=== PATIENT | male | born 1965 | race Caucasian/White ===

== ENCOUNTER 2019-02-23 22:04 | Observation (INO) | payer MEDICARE, OTHER ==
--- NOTE | 2019-02-23 22:22 | ERPHSYRPT ---
- History of Present Illness Time Seen by Provider: 02/23/19 22:11 Source: patient Exam Limitations: no limitations Patient Subjective Stated Complaint: pt states he has passed put 2 times today. states it was more sudden that previosly. Triage Nursing Assessment: pt alert and oriented, answers questions approp. pt arrive per ambulance. transfers to stretcher per self. respirations nonlabored with lungs cta. peripheral pulses intact. pupils equal and reacitve. Physician History: Pt states, he was home alone in [place], suddenly passed out without any preceding event or symptoms at 16:30 PM. He woke up, not sure how long was he unconscious, and passed out again around 19 PM. He developed nausea, SOB and left sided chest pain. He took a regular aspirin and called 911, and brought here. Witnessed: unwitnessed Prior Episodes: multiple episodes today Timing/Duration: today Precipitating Factors: none Context: standing Loss of Consciousness: unsure Charcter of event(s): collapsed Allergies/Adverse Reactions: Cephalosporins Allergy (Severe, Verified 11/15/13 16:26) Difficulty Breathing Tetanus Vaccines and Toxoid Allergy (Verified 02/23/19 22:18) Tightness of Throat Home Medications: Atenolol 50 mg [Tenormin 50 mg] 50 mg PO DAILY 11/15/13 [History] Buspirone HCl 5 mg [Buspar 5 mg] 30 mg PO BID 11/15/13 [History] Clonazepam 2 mg PO QID 11/15/13 [History] Desvenlafaxine Succinate [Pristiq ER] 50 mg PO DAILY 11/15/13 [History] Enalapril/Hydrochlorothiazide [Enalapril-Hctz 5-12.5 mg Tab] 1 tab PO BID [History] Ibuprofen 200 mg [Motrin 200 mg] 600 mg PO Q4H PRN PRN 11/15/13 [History] Vilazodone Hydrochloride [Viibryd] 20 mg PO DAILY 11/15/13 [History] Hx Tetanus, Diphtheria Vaccination/Date Given: No Hx Influenza Vaccination/Date Given: No Hx Pneumococcal Vaccination/Date Given: No Immunizations Up to Date: No - Past Medical History Pertinent Past Medical History: Yes Neurological History: No Pertinent History ENT History: No Pertinent History Cardiac History: Hypertension Respiratory History: No Pertinent History Endocrine Medical History: No Pertinent History Musculoskeletal History: Arthritis GI Medical History: GERD, Irritable Bowel History: No Pertinent History Psycho-Social History: Anxiety, Bipolar, Depression Male Reproductive Disorders: No Pertinent History - Past Surgical History Past Surgical History: Yes Neuro Surgical History: No Pertinent History Cardiac: No Pertinent History Respiratory: No Pertinent History Gastrointestinal: Appendectomy Genitourinary: No Pertinent History Musculoskeletal: Orthopedic Surgery Male Surgical History: No Pertinent History Other Surgical History: LEFT FOOT SURGERY IN 03 - Social History Smoking Status: Current every day smoker Exposure to second hand smoke: No Drug Use: none Patient Lives Alone: No - Review of Systems Constitutional: No Symptoms Eyes: No Symptoms Ears, Nose, & Throat: No Symptoms Respiratory: Dyspnea Cardiac: Chest Pain Abdominal/Gastrointestinal: Nausea Neurological: Other (syncope x 2) All Other Systems: Reviewed and Negative Physical Exam - Nursing Vital Signs Nursing Vital Signs: Initial Vital Signs Temperature 98.0 F 02/23/19 22:08 Pulse Rate 77 02/23/19 22:08 Respiratory Rate 18 02/23/19 22:08 Blood Pressure 137/87 02/23/19 22:08 O2 Sat by Pulse Oximetry 99 02/23/19 22:08 Pain Scale Pain Intensity 5 - Sukh Coma Scale Best Eye Response (Sukh): (4) open spontaneously Best Verbal Response ([place]): (5) oriented Best Motor Response (Sukh): (6) obeys commands [place] Total: 15 - Physical Exam General Appearance: no apparent distress Eye Exam: bilateral eye: PERRL, EOMI Ears, Nose, Throat Exam: normal ENT inspection, moist mucous membranes Neck Exam: normal inspection, non-tender, supple, full range of motion, No carotid bruit, No JVD Respiratory: normal breath sounds, lungs clear, airway intact, No chest tenderness Cardiovascular: regular rate/rhythm, normal heart sounds, normal peripheral pulses, No murmur Gastrointestinal: soft, normal bowel sounds, No tenderness Extremity Exam: normal inspection, No calf tenderness, No ghassan's sign Peripheral Pulses: carotid (R): 3+, carotid (L): 3+, femoral (R): 2+, femoral (L ): 2+, dorsalis-pedis (R): 2+, dorsalis-pedis (L): 2+ Mental Status: alert, oriented x 3, cooperative tax lawyer Exam: normal speech Coordination/Gait: normal finger to nose Motor/Sensory: no motor deficit DTR: bicep (R): 2+, bicep (L): 2+, knee (R): 2+, knee (L): 2+, ankle (R): 2+, ankle (L): 2+ Skin Exam: normal color, warm, dry, No rash SpO2 Interpretation: normal SpO2: 99 O2 Delivery: Room Air - Course Nursing assessment & vital signs reviewed: Yes EKG Interpreted by Me: RATE (69/min), Left [place] Deviation, NORMAL INTERVALS, NORMAL QRS, NORMAL ST-T - Radiology Exams Chest X-ray Interpretation: Interpreted by me, Negative - CT Exams Head CT Interpretation: Negative, Tele-radiologist Report Ordered Tests: Active Orders 24 hr Category Date Time Status Camp Nurse STAT Care 02/23/19 22:17 Active EKG-ER Only STAT Care 02/23/19 22:16 Active IV Insertion STAT Care 02/23/19 22:16 Active Oxygen-ED Only Nasal Cannula 2 lpm Care 02/23/19 22:16 Active Pulse Oximetry (ED) STAT Care 02/23/19 22:16 Active CHEST 1 VIEW (PORTABLE) Stat Exams 02/23/19 22:17 Taken HEAD WITHOUT CONTRAST [CT] Stat Exams 02/23/19 22:18 Taken CBC W DIFF Stat Lab 02/23/19 23:09 Completed CK-Creatinine Phosphokinase Stat Lab 02/23/19 23:09 Completed CMP Stat Lab 02/23/19 23:09 Completed D-DIMER QUANTITATION Stat Lab 02/23/19 23:09 Completed MAGNESIUM Stat Lab 02/23/19 23:09 Completed NT PRO BNP Stat Lab 02/23/19 23:09 Completed PROTIME WITH INR Stat Lab 02/23/19 23:09 Completed PTT Stat Lab 02/23/19 23:09 Completed TROPONIN Q3H Lab 02/23/19 23:09 Completed TROPONIN Q3H Lab 02/24/19 01:30 Ordered TROPONIN Q3H Lab 02/24/19 04:30 Ordered TROPONIN Q3H Lab 02/24/19 07:30 Ordered TROPONIN Q3H Lab 02/24/19 10:30 Ordered UA W/RFX UR CULTURE Stat Lab 02/23/19 22:30 Completed Urine Triage Profile Stat Lab 02/23/19 22:30 Completed Medication Summary Discontinued Medications Generic Name Dose Route Start Last Admin Trade Name Sheri PRN Reason Stop Dose Admin Potassium Bicarbonate Confirm 02/24/19 00:54 K-Lyte 25 Meq Administered 02/24/19 00:55 Dose 25 meq .ROUTE .STK-MED ONE Potassium Bicarbonate 25 meq 02/24/19 00:55 02/24/19 00:57 K-Lyte 25 Meq PO 02/24/19 00:56 25 meq STAT ONE Administration Lab/Rad Data: Laboratory Result Diagrams 02/23/19 23:09 02/23/19 23:09 Laboratory Results 02/23/19 02/23/19 02/23/19 Range/Units 23:09 23:09 23:09 WBC (4.0-10.5) K/mm3 RBC (4.1-5.6) M/mm3 Hgb (12.5-18.0) gm/dl Hct (42-50) % MCV (78-100) fl MCH (26-32) pg MCHC (32-36) g/dl RDW (11.5-14.0) % Plt Count (150-450) K/mm3 MPV (6-9.5) fl Gran % (36.0-66.0) % Eos # (Auto) (0-0.5) Absolute Lymphs (auto) (1.0-4.6) Absolute Monos (auto) (0.0-1.3) Lymphocytes % (24.0-44.0) % Monocytes % (0.0-12.0) % Eosinophils % (0.00-5.0) % Basophils % (0.0-0.4) % Absolute Granulocytes (1.4-6.9) Basophils # (0-0.4) PT 12.1 (8.83-12.87) SECONDS INR 1.04 (0.8-3.0) APTT 31.1 (24.1-36.1) SECONDS D-Dimer 293 (215-500) ng/mL Sodium 127 L (137-145) mmol/L Potassium 3.4 L (3.5-5.1) mmol/L Chloride 89 L (98-107) mmol/L Carbon Dioxide 27 (22-30) mmol/L Anion Gap 14.5 (5-15) MEQ/L BUN 15 (9-20) mg/dL Creatinine 0.91 (0.66-1.25) mg/dL Estimated GFR > 60.0 ML/MIN Glucose 91 (74-106) mg/dL Calcium 9.2 (8.4-10.2) mg/dL Magnesium 1.6 (1.6-2.3) mg/dL Total Bilirubin 0.50 (0.2-1.3) mg/dL AST 24 (17-59) U/L ALT 27 (0-50) U/L Alkaline Phosphatase 72 (38-126) U/L Creatine Kinase 98 (55-170) U/L Troponin I < 0.012 (0.000-0.034) ng/mL NT-Pro-B Natriuret Pep 84.2 (0-900) pg/mL Serum Total Protein 6.8 (6.3-8.2) g/dL Albumin 4.1 (3.5-5.0) g/dL Urine Color (YELLOW) Urine Appearance (CLEAR) Urine pH (5-6) Ur Specific [place] (1.005-1.025) Urine Protein (Negative) Urine Ketones (NEGATIVE) Urine Blood (0-5) Lizandro/ul Urine Nitrite (NEGATIVE) Urine Bilirubin (NEGATIVE) Urine Urobilinogen (0-1) mg/dL Ur Leukocyte Esterase (NEGATIVE) Urine WBC (Auto) (0-5) /HPF Urine RBC (Auto) (0-2) /HPF U Epithel Cells (Auto) (FEW) /HPF Urine Bacteria (Auto) (NEGATIVE) /HPF Urine Culture Reflexed (NO) Urine Glucose (NEGATIVE) mg/dL Urine Opiates Level (NEGATIVE) Ur Methadone (NEGATIVE) Urine Barbiturates (NEGATIVE) Ur Phencyclidine (PCP) (NEGATIVE) Urine Amphetamine (NEGATIVE) U Benzodiazepine Level (NEGATIVE) Urine Cocaine (NEGATIVE) Urine Marijuana (THC) (NEGATIVE) 02/23/19 02/23/19 02/23/19 Range/Units 23:09 22:30 22:30 WBC 10.2 (4.0-10.5) K/mm3 RBC 4.27 (4.1-5.6) M/mm3 Hgb 13.5 (12.5-18.0) gm/dl Hct 38.9 L (42-50) % MCV 91.1 (78-100) fl MCH 31.6 (26-32) pg MCHC 34.7 (32-36) g/dl RDW 12.5 (11.5-14.0) % Plt Count 229 (150-450) K/mm3 MPV 8.8 (6-9.5) fl Gran % 65.1 (36.0-66.0) % Eos # (Auto) 0.22 (0-0.5) Absolute Lymphs (auto) 2.37 (1.0-4.6) Absolute Monos (auto) 0.89 (0.0-1.3) Lymphocytes % 23.3 L (24.0-44.0) % Monocytes % 8.8 (0.0-12.0) % Eosinophils % 2.2 (0.00-5.0) % Basophils % 0.6 (0.0-0.4) % Absolute Granulocytes 6.61 (1.4-6.9) Basophils # 0.06 (0-0.4) PT (8.83-12.87) SECONDS INR (0.8-3.0) APTT (24.1-36.1) SECONDS D-Dimer (215-500) ng/mL Sodium (137-145) mmol/L Potassium (3.5-5.1) mmol/L Chloride (98-107) mmol/L Carbon Dioxide (22-30) mmol/L Anion Gap (5-15) MEQ/L BUN (9-20) mg/dL Creatinine (0.66-1.25) mg/dL Estimated GFR ML/MIN Glucose (74-106) mg/dL Calcium (8.4-10.2) mg/dL Magnesium (1.6-2.3) mg/dL Total Bilirubin (0.2-1.3) mg/dL AST (17-59) U/L ALT (0-50) U/L Alkaline Phosphatase (38-126) U/L Creatine Kinase (55-170) U/L Troponin I (0.000-0.034) ng/mL NT-Pro-B Natriuret Pep (0-900) pg/mL Serum Total Protein (6.3-8.2) g/dL Albumin (3.5-5.0) g/dL Urine Color STRAW (YELLOW) Urine Appearance CLEAR (CLEAR) Urine pH 5.0 (5-6) Ur Specific [place] 1.002 (1.005-1.025) Urine Protein NEGATIVE (Negative) Urine Ketones NEGATIVE (NEGATIVE) Urine Blood NEGATIVE (0-5) Liz[place]/ul Urine Nitrite NEGATIVE (NEGATIVE) Urine Bilirubin NEGATIVE (NEGATIVE) Urine Urobilinogen NEGATIVE (0-1) mg/dL Ur Leukocyte Esterase NEGATIVE (NEGATIVE) Urine WBC (Auto) NONE SEEN (0-5) /HPF Urine RBC (Auto) NONE (0-2) /HPF U Epithel Cells (Auto) NONE (FEW) /HPF Urine Bacteria (Auto) NONE SEEN (NEGATIVE) /HPF Urine Culture Reflexed NO (NO) Urine Glucose NEGATIVE (NEGATIVE) mg/dL Urine Opiates Level NEGATIVE (NEGATIVE) Ur Methadone NEGATIVE (NEGATIVE) Urine Barbiturates NEGATIVE (NEGATIVE) Ur Phencyclidine (PCP) NEGATIVE (NEGATIVE) Urine Amphetamine NEGATIVE (NEGATIVE) U Benzodiazepine Level NEGATIVE (NEGATIVE) Urine Cocaine NEGATIVE (NEGATIVE) Urine Marijuana (THC) NEGATIVE (NEGATIVE) - Progress Progress: improved Progress Note: 02/24/19 01:01 Pt has been stable, we reviewed his results, and called Dr Matthews, discussed his current condition, in his case in details, he agreed to admit him for observation, patient was informed and agreed. Discussed with : Byron Will see patient in: hospital (observation) Counseled pt/family regarding: lab results, diagnosis, rad results - Departure Departure Disposition: Observation Clinical Impression: Syncope Qualifiers: Syncope type: unspecified Qualified Code(s): R55 - Syncope and collapse Chest pain Qualifiers: Chest pain type: unspecified Qualified Code(s): R07.9 - Chest pain, unspecified Condition: Stable Critical Care Time: No Referrals: FAM LUI NP [Primary Care Provider] - Instructions: Syncope (Fainting) (DC)
[2019-02-23 22:46] LABS: Appearance CLEAR (CLEAR); Bilirubin NEGATIVE (NEGATIVE); Blood NEGATIVE Ery/ul (0-5); Glucose NEGATIVE (NEGATIVE); Ketones NEGATIVE (NEGATIVE); Leukocyte Esterase NEGATIVE (NEGATIVE); Nitrite NEGATIVE (NEGATIVE); Protein,Urine Dip NEGATIVE (Negative); Specific Gravity 1.002 (1.005-1.025); Urobilinogen NEGATIVE mg/dL (0-1)
[2019-02-23 22:51] LABS: WBC NONE SEEN /HPF (0-5)
[2019-02-23 22:52] LABS: Bacteria NONE SEEN /HPF (NEGATIVE)
[2019-02-23 22:59] LABS: Amphetamine,Urine NEGATIVE (NEGATIVE); Barbiturate,Urine NEGATIVE (NEGATIVE); Benzodiazepine,Urine NEGATIVE (NEGATIVE); Cocaine,Urine NEGATIVE (NEGATIVE); Methadone,Urine NEGATIVE (NEGATIVE); Opiate,Urine NEGATIVE (NEGATIVE); PCP,Urine NEGATIVE (NEGATIVE); THC,Urine NEGATIVE (NEGATIVE)
[2019-02-23 23:12] LABS: BASOPHIL % 0.6 % (0.0-0.4); Basophil (Absolute #) 0.06 (0-0.4); Eosinophil % 2.2 % (0.00-5.0); Eosinophil (Absolute #) 0.22 (0-0.5); Granulocyte Absolute (ANC) 6.61 (1.4-6.9); Granulocytes % 65.1 % (36.0-66.0); Hematocrit 38.9 % (42-50); Hemoglobin 13.5 gm/dl (12.5-18.0); Lymphocyte (Absolute #) 2.37 (1.0-4.6); Lymphocytes % 23.3 % (24.0-44.0); Mean Cell Volume 91.1 fl (78-100); Mean Corpuscular Hemoglobin 31.6 pg (26-32); Mean Corpuscular Hgb Concent. 34.7 g/dl (32-36); Mean Platelet Volume 8.8 fl (6-9.5); Monocyte (Absolute #) 0.89 (0.0-1.3); Monocytes % 8.8 % (0.0-12.0); Platelet Count 229 K/mm3 (150-450); Red Blood Count 4.27 M/mm3 (4.1-5.6); Red Cell Distribution Width 12.5 % (11.5-14.0); White Blood Count 10.2 K/mm3 (4.0-10.5)
[2019-02-23 23:25] LABS: INR 1.04 (0.8-3.0); PROTIME 12.1 SECONDS (8.83-12.87)
[2019-02-23 23:28] LABS: PTT 31.1 SECONDS (24.1-36.1)
[2019-02-23 23:38] LABS: ALBUMIN 4.1 g/dL (3.5-5.0); ALKALINE PHOSPHATASE 72 U/L (38-126); ANION GAP 14.5 MEQ/L (5-15); BLOOD UREA NITROGEN 15 mg/dL (9-20); CHLORIDE 89 mmol/L (98-107); CK-Creatinine Phosphokinase 98 U/L (55-170); Calcium 9.2 mg/dL (8.4-10.2); Carbon Dioxide 27 mmol/L (22-30); Creatinine 1 0.91 mg/dL (0.66-1.25); Glucose 91 mg/dL (74-106); MAGNESIUM 1.6 mg/dL (1.6-2.3); NT PRO BNP 84.2 pg/mL (0-900); Potassium 3.4 mmol/L (3.5-5.1); SGOT/AST 24 U/L (17-59); SGPT/ALT 27 U/L (0-50); SODIUM 127 mmol/L (137-145); Total Protein 6.8 g/dL (6.3-8.2)
[2019-02-24] MEDS ORDERED: POTASSIUM CHLORIDE 20 MEQ POWDER FOR ORAL SOL PO ONE (00:33)
[2019-02-24] MEDS ORDERED: K-LYTE 25 MEQ ONE (00:54)
[2019-02-24] MEDS ORDERED: K-LYTE 25 MEQ PO ONE (00:55)
[2019-02-24] MEDS ORDERED: MAALOX ES 30 ML UNIT DOSE PO PRN (01:03)
[2019-02-24] MEDS ORDERED: TYLENOL 325 MG PO PRN (01:03)
[2019-02-24] MEDS ORDERED: Senokot-S Tablet PO PRN (01:03)
[2019-02-24] MEDS ORDERED: Zofran 4 MG/2 ML VIAL IV PRN (01:03)
[2019-02-24] MEDS ORDERED: MILK OF MAGNESIA 30 ML PO PRN (01:03)
[2019-02-24 01:49] LABS: Risk Ratio 2.9
[2019-02-24] MEDS ORDERED: Sodium Chloride 0.9% W/ 20 mEq KCl/LITER 1,000 ML IV SCH (08:15)
--- NOTE | 2019-02-24 08:21 | PCM.HP ---
History of Present Illness - Chief Complaint Chief Complaint: Syncope History of Present Illness: is a 53 year old male who presented to the ER yesterday after 2 syncopal episodes. He normally sees Dr Carney, has no local physician. He reports he had 2 separate episodes where he felt tingling in his bilateral hands and feet and then passed out, these were apparently unwitnessed so he is uncertain how long he was out either time, the second incident he awoke and developed substernal chest pain, shortness of breath and nausea so came to the ER for evaluation, he denies a history of any cardiac or neurological problems. He denies any drug or alcohol abuse, states he tapered off of klonopin and stopped taking it about 6 weeks ago. - Review of Systems Constitutional: No Fever, No Chills Respiratory: Short Of Breath, No Cough Cardiac: Chest Pain, Syncope Abdominal/Gastrointestinal: No Abdominal Pain, No Nausea, No Vomiting, No Diarrhea Genitourinary Symptoms: No Dysuria Skin: No Rash Neurological: No Dizziness, No Focal Weakness, No Sensory Changes All Other Systems: Reviewed and Negative Medications & Allergies Home Medications: Home Medication List Atenolol 50 mg [Tenormin 50 mg] 100 mg PO DAILY 11/15/13 [History Confirmed 02/24/19] Clonazepam 0.25 mg PO QID PRN 11/15/13 [History Confirmed 02/24/19] Desvenlafaxine Succinate [Pristiq ER] 200 mg PO DAILY 11/15/13 [History Confirmed 02/24/19] Bupropion HCl Xl 150 mg [Wellbutrin XL 150 MG] 450 mg PO QAM 02/24/19 [ History Confirmed 02/24/19] Celecoxib 100 mg [celeBREX 100 MG] 200 mg PO BID 02/24/19 [History Confirmed 02/24/19] Enalapril Maleate 20 mg PO BID 02/24/19 [History Confirmed 02/24/19] Ergocalciferol (Vitamin D2) [Vitamin D2] 50,000 units PO WEEKLY 02/24/19 [ History Confirmed 02/24/19] Gabapentin 300 mg PO TID 02/24/19 [History Confirmed 02/24/19] Hydrochlorothiazide 25 mg [hydroDIURIL 25 MG] 50 mg PO QAM 02/24/19 [ History Confirmed 02/24/19] Hydroxyzine HCl 25 mg [Atarax 25 mg] 25 mg PO BID 02/24/19 [History Confirmed 02/24/19] Minocycline [Minocycline 100MG Cap] 100 mg PO QAM 02/24/19 [History Confirmed 02/24/19] Omeprazole 40 mg PO QAM 02/24/19 [History Confirmed 02/24/19] Simvastatin 10 mg PO QAM 02/24/19 [History Confirmed 02/24/19] Tamsulosin HCl 0.4 mg [Flomax 0.4 MG] 0.4 mg PO DAILY 02/24/19 [History Confirmed 02/24/19] Allergies/Adverse Reactions: Allergies Allergy/AdvReac Type Severity Reaction Status Date / Time Cephalosporins Allergy Severe Difficulty Verified 11/15/13 16:26 Breathing Tetanus Vaccines and Toxoid Allergy Tightness Verified 02/23/19 22:18 of Throat - Past Medical History Past Medical History: Yes Neurological History: No Pertinent History ENT History: No Pertinent History Cardiac History: Hypertension Respiratory History: No Pertinent History Endocrine Medical History: No Pertinent History Musculoskelatal History: Osteoarthritis GI Medical History: GERD, Irritable Bowel History: No Pertinent History Pyscho-Social History: Anxiety, Depression Male Reproductive Disorders: No Pertinent History - Past Surgical History Past Surgical History: Yes Neuro Surgical History: No Pertinent History Cardiac History: No Pertinent History Respiratory Surgery: No Pertinent History GI Surgical History: Appendectomy, Cholecystectomy Genitourinary Surgical Hx: No Pertinent History Musculskeletal Surgical Hx: Orthopedic Surgery Male Surgical History: No Pertinent History Other Surgical History: LEFT FOOT SURGERY IN 03 - Social History Smoking Status: Current every day smoker Exposure to second hand smoke: No Alcohol: None Drug Use: none - Physical Exam Vital Signs: Vital Signs - 24 hr Temp Pulse Resp BP Pulse Ox 02/24/19 07:36 98 02/24/19 07:35 97.7 F 66 14 105/57 97 02/24/19 04:58 98.0 F 68 18 106/68 99 02/24/19 04:00 98.0 F 68 18 106/68 99 02/24/19 01:03 68 18 106/68 99 05/23/19 01:02 99 02/24/19 00:05 64 16 112/70 96 02/23/19 23:05 67 18 110/65 98 02/23/19 22:35 98 02/23/19 22:08 98.0 F 77 18 137/87 99 General Appearance: no apparent distress, alert Neurologic Exam: alert, oriented x 3, cooperative, normal mood/affect, nml cerebellar function, nml station & gait, sensation nml, No motor deficits Eye Exam: PERRL/EOMI, eyes nml inspection Respiratory Exam: normal breath sounds, lungs clear, No respiratory distress Cardiovascular Exam: regular rate/rhythm, normal heart sounds, normal peripheral pulses Gastrointestinal/Abdomen Exam: soft, normal bowel sounds, No tenderness, No mass Extremity Exam: normal inspection, normal range of motion, pelvis stable Skin Exam: normal color, warm, dry, No rash Results - Labs Lab/Micro Results: Lab Results-Last 24 Hours 02/23/19 02/23/19 02/23/19 Range/Units 22:30 22:30 23:09 WBC 10.2 (4.0-10.5) K/mm3 RBC 4.27 (4.1-5.6) M/mm3 Hgb 13.5 (12.5-18.0) gm/dl Hct 38.9 L (42-50) % MCV 91.1 (78-100) fl MCH 31.6 (26-32) pg MCHC 34.7 (32-36) g/dl RDW 12.5 (11.5-14.0) % Plt Count 229 (150-450) K/mm3 MPV 8.8 (6-9.5) fl Gran % 65.1 (36.0-66.0) % Eos # (Auto) 0.22 (0-0.5) Absolute Lymphs (auto) 2.37 (1.0-4.6) Absolute Monos (auto) 0.89 (0.0-1.3) Lymphocytes % 23.3 L (24.0-44.0) % Monocytes % 8.8 (0.0-12.0) % Eosinophils % 2.2 (0.00-5.0) % Basophils % 0.6 (0.0-0.4) % Absolute Granulocytes 6.61 (1.4-6.9) Basophils # 0.06 (0-0.4) PT (8.83-12.87) SECONDS INR (0.8-3.0) APTT (24.1-36.1) SECONDS D-Dimer (215-500) ng/mL Sodium (137-145) mmol/L Potassium (3.5-5.1) mmol/L Chloride (98-107) mmol/L Carbon Dioxide (22-30) mmol/L Anion Gap (5-15) MEQ/L BUN (9-20) mg/dL Creatinine (0.66-1.25) mg/dL Estimated GFR ML/MIN Glucose (74-106) mg/dL Calcium (8.4-10.2) mg/dL Magnesium (1.6-2.3) mg/dL Total Bilirubin (0.2-1.3) mg/dL AST (17-59) U/L ALT (0-50) U/L Alkaline Phosphatase (38-126) U/L Creatine Kinase (55-170) U/L Troponin I (0.000-0.034) ng/mL NT-Pro-B Natriuret Pep (0-900) pg/mL Serum Total Protein (6.3-8.2) g/dL Albumin (3.5-5.0) g/dL Triglycerides (30-150) mg/dL Cholesterol (50-200) mg/dL LDL Cholesterol (30-100) mg/dL HDL Cholesterol (40-60) mg/dL Heart Disease Risk Ratio Urine Color STRAW (YELLOW) Urine Appearance CLEAR (CLEAR) Urine pH 5.0 (5-6) Ur Specific Mittie 1.002 (1.005-1.025) Urine Protein NEGATIVE (Negative) Urine Ketones NEGATIVE (NEGATIVE) Urine Blood NEGATIVE (0-5) Lizandro/ul Urine Nitrite NEGATIVE (NEGATIVE) Urine Bilirubin NEGATIVE (NEGATIVE) Urine Urobilinogen NEGATIVE (0-1) mg/dL Ur Leukocyte Esterase NEGATIVE (NEGATIVE) Urine WBC (Auto) NONE SEEN (0-5) /HPF Urine RBC (Auto) NONE (0-2) /HPF U Epithel Cells (Auto) NONE (FEW) /HPF Urine Bacteria (Auto) NONE SEEN (NEGATIVE) /HPF Urine Culture Reflexed NO (NO) Urine Glucose NEGATIVE (NEGATIVE) mg/dL Urine Opiates Level NEGATIVE (NEGATIVE) Ur Methadone NEGATIVE (NEGATIVE) Urine Barbiturates NEGATIVE (NEGATIVE) Ur Phencyclidine (PCP) NEGATIVE (NEGATIVE) Urine Amphetamine NEGATIVE (NEGATIVE) U Benzodiazepine Level NEGATIVE (NEGATIVE) Urine Cocaine NEGATIVE (NEGATIVE) Urine Marijuana (THC) NEGATIVE (NEGATIVE) 02/23/19 02/23/19 02/23/19 Range/Units 23:09 23:09 23:09 WBC (4.0-10.5) K/mm3 RBC (4.1-5.6) M/mm3 Hgb (12.5-18.0) gm/dl Hct (42-50) % MCV (78-100) fl MCH (26-32) pg MCHC (32-36) g/dl RDW (11.5-14.0) % Plt Count (150-450) K/mm3 MPV (6-9.5) fl Gran % (36.0-66.0) % Eos # (Auto) (0-0.5) Absolute Lymphs (auto) (1.0-4.6) Absolute Monos (auto) (0.0-1.3) Lymphocytes % (24.0-44.0) % Monocytes % (0.0-12.0) % Eosinophils % (0.00-5.0) % Basophils % (0.0-0.4) % Absolute Granulocytes (1.4-6.9) Basophils # (0-0.4) PT 12.1 (8.83-12.87) SECONDS INR 1.04 (0.8-3.0) APTT 31.1 (24.1-36.1) SECONDS D-Dimer 293 (215-500) ng/mL Sodium 127 L (137-145) mmol/L Potassium 3.4 L (3.5-5.1) mmol/L Chloride 89 L (98-107) mmol/L Carbon Dioxide 27 (22-30) mmol/L Anion Gap 14.5 (5-15) MEQ/L BUN 15 (9-20) mg/dL Creatinine 0.91 (0.66-1.25) mg/dL Estimated GFR > 60.0 ML/MIN Glucose 91 (74-106) mg/dL Calcium 9.2 (8.4-10.2) mg/dL Magnesium 1.6 (1.6-2.3) mg/dL Total Bilirubin 0.50 (0.2-1.3) mg/dL AST 24 (17-59) U/L ALT 27 (0-50) U/L Alkaline Phosphatase 72 (38-126) U/L Creatine Kinase 98 (55-170) U/L Troponin I < 0.012 (0.000-0.034) ng/mL NT-Pro-B Natriuret Pep 84.2 (0-900) pg/mL Serum Total Protein 6.8 (6.3-8.2) g/dL Albumin 4.1 (3.5-5.0) g/dL Triglycerides (30-150) mg/dL Cholesterol (50-200) mg/dL LDL Cholesterol (30-100) mg/dL HDL Cholesterol (40-60) mg/dL Heart Disease Risk Ratio Urine Color (YELLOW) Urine Appearance (CLEAR) Urine pH (5-6) Ur Specific Mittie (1.005-1.025) Urine Protein (Negative) Urine Ketones (NEGATIVE) Urine Blood (0-5) Lizandro/ul Urine Nitrite (NEGATIVE) Urine Bilirubin (NEGATIVE) Urine Urobilinogen (0-1) mg/dL Ur Leukocyte Esterase (NEGATIVE) Urine WBC (Auto) (0-5) /HPF Urine RBC (Auto) (0-2) /HPF U Epithel Cells (Auto) (FEW) /HPF Urine Bacteria (Auto) (NEGATIVE) /HPF Urine Culture Reflexed (NO) Urine Glucose (NEGATIVE) mg/dL Urine Opiates Level (NEGATIVE) Ur Methadone (NEGATIVE) Urine Barbiturates (NEGATIVE) Ur Phencyclidine (PCP) (NEGATIVE) Urine Amphetamine (NEGATIVE) U Benzodiazepine Level (NEGATIVE) Urine Cocaine (NEGATIVE) Urine Marijuana (THC) (NEGATIVE) 02/24/19 02/24/19 02/24/19 Range/Units 01:23 01:25 04:36 WBC (4.0-10.5) K/mm3 RBC (4.1-5.6) M/mm3 Hgb (12.5-18.0) gm/dl Hct (42-50) % MCV (78-100) fl MCH (26-32) pg MCHC (32-36) g/dl RDW (11.5-14.0) % Plt Count (150-450) K/mm3 MPV (6-9.5) fl Gran % (36.0-66.0) % Eos # (Auto) (0-0.5) Absolute Lymphs (auto) (1.0-4.6) Absolute Monos (auto) (0.0-1.3) Lymphocytes % (24.0-44.0) % Monocytes % (0.0-12.0) % Eosinophils % (0.00-5.0) % Basophils % (0.0-0.4) % Absolute Granulocytes (1.4-6.9) Basophils # (0-0.4) PT (8.83-12.87) SECONDS INR (0.8-3.0) APTT (24.1-36.1) SECONDS D-Dimer (215-500) ng/mL Sodium (137-145) mmol/L Potassium (3.5-5.1) mmol/L Chloride (98-107) mmol/L Carbon Dioxide (22-30) mmol/L Anion Gap (5-15) MEQ/L BUN (9-20) mg/dL Creatinine (0.66-1.25) mg/dL Estimated GFR ML/MIN Glucose (74-106) mg/dL Calcium (8.4-10.2) mg/dL Magnesium (1.6-2.3) mg/dL Total Bilirubin (0.2-1.3) mg/dL AST (17-59) U/L ALT (0-50) U/L Alkaline Phosphatase (38-126) U/L Creatine Kinase (55-170) U/L Troponin I < 0.012 < 0.012 (0.000-0.034) ng/mL NT-Pro-B Natriuret Pep (0-900) pg/mL Serum Total Protein (6.3-8.2) g/dL Albumin (3.5-5.0) g/dL Triglycerides 110 (30-150) mg/dL Cholesterol 144 (50-200) mg/dL LDL Cholesterol 84 (30-100) mg/dL HDL Cholesterol 50 (40-60) mg/dL Heart Disease Risk Ratio 2.9 Urine Color (YELLOW) Urine Appearance (CLEAR) Urine pH (5-6) Ur Specific Mittie (1.005-1.025) Urine Protein (Negative) Urine Ketones (NEGATIVE) Urine Blood (0-5) Lizandro/ul Urine Nitrite (NEGATIVE) Urine Bilirubin (NEGATIVE) Urine Urobilinogen (0-1) mg/dL Ur Leukocyte Esterase (NEGATIVE) Urine WBC (Auto) (0-5) /HPF Urine RBC (Auto) (0-2) /HPF U Epithel Cells (Auto) (FEW) /HPF Urine Bacteria (Auto) (NEGATIVE) /HPF Urine Culture Reflexed (NO) Urine Glucose (NEGATIVE) mg/dL Urine Opiates Level (NEGATIVE) Ur Methadone (NEGATIVE) Urine Barbiturates (NEGATIVE) Ur Phencyclidine (PCP) (NEGATIVE) Urine Amphetamine (NEGATIVE) U Benzodiazepine Level (NEGATIVE) Urine Cocaine (NEGATIVE) Urine Marijuana (THC) (NEGATIVE) 02/24/19 Range/Units 04:36 WBC (4.0-10.5) K/mm3 RBC (4.1-5.6) M/mm3 Hgb (12.5-18.0) gm/dl Hct (42-50) % MCV (78-100) fl MCH (26-32) pg MCHC (32-36) g/dl RDW (11.5-14.0) % Plt Count (150-450) K/mm3 MPV (6-9.5) fl Gran % (36.0-66.0) % Eos # (Auto) (0-0.5) Absolute Lymphs (auto) (1.0-4.6) Absolute Monos (auto) (0.0-1.3) Lymphocytes % (24.0-44.0) % Monocytes % (0.0-12.0) % Eosinophils % (0.00-5.0) % Basophils % (0.0-0.4) % Absolute Granulocytes (1.4-6.9) Basophils # (0-0.4) PT (8.83-12.87) SECONDS INR (0.8-3.0) APTT (24.1-36.1) SECONDS D-Dimer (215-500) ng/mL Sodium (137-145) mmol/L Potassium 3.3 L (3.5-5.1) mmol/L Chloride (98-107) mmol/L Carbon Dioxide (22-30) mmol/L Anion Gap (5-15) MEQ/L BUN (9-20) mg/dL Creatinine (0.66-1.25) mg/dL Estimated GFR ML/MIN Glucose (74-106) mg/dL Calcium (8.4-10.2) mg/dL Magnesium (1.6-2.3) mg/dL Total Bilirubin (0.2-1.3) mg/dL AST (17-59) U/L ALT (0-50) U/L Alkaline Phosphatase (38-126) U/L Creatine Kinase (55-170) U/L Troponin I (0.000-0.034) ng/mL NT-Pro-B Natriuret Pep (0-900) pg/mL Serum Total Protein (6.3-8.2) g/dL Albumin (3.5-5.0) g/dL Triglycerides (30-150) mg/dL Cholesterol (50-200) mg/dL LDL Cholesterol (30-100) mg/dL HDL Cholesterol (40-60) mg/dL Heart Disease Risk Ratio Urine Color (YELLOW) Urine Appearance (CLEAR) Urine pH (5-6) Ur Specific Mittie (1.005-1.025) Urine Protein (Negative) Urine Ketones (NEGATIVE) Urine Blood (0-5) Lizandro/ul Urine Nitrite (NEGATIVE) Urine Bilirubin (NEGATIVE) Urine Urobilinogen (0-1) mg/dL Ur Leukocyte Esterase (NEGATIVE) Urine WBC (Auto) (0-5) /HPF Urine RBC (Auto) (0-2) /HPF U Epithel Cells (Auto) (FEW) /HPF Urine Bacteria (Auto) (NEGATIVE) /HPF Urine Culture Reflexed (NO) Urine Glucose (NEGATIVE) mg/dL Urine Opiates Level (NEGATIVE) Ur Methadone (NEGATIVE) Urine Barbiturates (NEGATIVE) Ur Phencyclidine (PCP) (NEGATIVE) Urine Amphetamine (NEGATIVE) U Benzodiazepine Level (NEGATIVE) Urine Cocaine (NEGATIVE) Urine Marijuana (THC) (NEGATIVE) - Radiology Impressions Radiology Exams & Impressions: Radiology Procedures Category Date Time Status CHEST 1 VIEW (PORTABLE) Stat Exams 02/23/19 22:17 Taken ECHO W/2D AND DOPPLER [US] Routine Exams 02/24/19 Ordered HEAD WITHOUT CONTRAST [CT] Stat Exams 02/23/19 22:18 Taken - Other Procedures and Tests Respiratory Therapy 02/25/19 05:00 EKG ROUTINE 02/26/19 05:00 EKG ROUTINE 02/27/19 05:00 EKG ROUTINE Assessment/Plan (1) Syncope Current Visit: Yes Status: Acute Qualifiers: Syncope type: unspecified Qualified Code(s): R55 - Syncope and collapse Assessment & Plan: ekg reviewed, shows pvc and possible left anterior fascicular block, no current of injury. troponin has been negative thus far. will obtain eeg today to r/o seizure but mostly concerning for cardiac etiology in the context of chest pain , dyspnea and nausea that followed the incident. will get echo and cardiology consult today. Code(s): R55 - SYNCOPE AND COLLAPSE (2) Chest pain Current Visit: Yes Status: Acute Qualifiers: Chest pain type: unspecified Qualified Code(s): R07.9 - Chest pain, unspecified Code(s): R07.9 - CHEST PAIN, UNSPECIFIED (3) Hyponatremia Current Visit: Yes Status: Acute Assessment & Plan: will stop hctz and hydrate with NS+K, pt states he has had issues with low sodium and potassium in the past but it was a long time ago. check FeNa and TSH Code(s): E87.1 - HYPO-OSMOLALITY AND HYPONATREMIA (4) Hypokalemia Current Visit: Yes Status: Acute Code(s): E87.6 - HYPOKALEMIA
[2019-02-24] MEDS ORDERED: Nitrostat 0.4 MG Tablet SL PRN (08:32)
--- NOTE | 2019-02-24 08:51 | XRAY ---
Indication: Chest pain. Syncope. Comparison: November 15, 2013. Portable chest demonstrates normal heart and lungs again with incidental calcified granulomas. Bony thorax intact with mild degenerative changes. Impression: Nonacute chest with chronic features.
--- NOTE | 2019-02-24 08:51 | XRAY ---
Indication: Syncope. No known injury. Multiple contiguous axial images obtained through the head without contrast. Comparison: None Age-appropriate global atrophy. No acute intracranial hemorrhage, abnormal extra-axial fluid collection, or mass effect. Fourth ventricle is midline without hydrocephalus. Cristobal-white matter differentiation preserved. Bony calvarium intact. Visualized paranasal sinuses and mastoid air cells are clear. Impression: Negative CT head without contrast exam. Comment: Preliminary interpretation was made by [facility]. No critical discrepancy. CT DI 67.22
[2019-02-24] MEDS ORDERED: MEDICATION INTERVENTION PO SCH (09:15)
[2019-02-24] MEDS ORDERED: TENORMIN 50 MG PO SCH (10:00)
[2019-02-24] MEDS ORDERED: ATARAX 25 MG PO SCH (10:00)
[2019-02-24] MEDS ORDERED: Vasotec 10 MG PO SCH (10:00)
[2019-02-24] MEDS ORDERED: Flomax 0.4 MG PO SCH (10:00)
[2019-02-24] MEDS ORDERED: Wellbutrin XL 150 MG PO SCH (10:00)
[2019-02-24] MEDS ORDERED: MINOCYCLINE 100 MG PO SCH (10:00)
[2019-02-24] MEDS ORDERED: ENALAPRIL MALEATE 20 MG PO SCH (10:00)
[2019-02-24] MEDS ORDERED: NON-FORMULARY ITEM (Omeprazole [Omeprazole] 40 MG) PO SCH (10:00)
[2019-02-24] MEDS ORDERED: Protonix 40MG Tablet PO SCH (10:00)
[2019-02-24] MEDS ORDERED: PRISTIQ ER PO SCH (10:00)
[2019-02-24] MEDS ORDERED: Ecotrin 325 MG PO SCH (10:00)
[2019-02-24] MEDS ORDERED: Zocor 10MG PO SCH (10:00)
[2019-02-24] MEDS: NEURONTIN 300 MG PO SCH ×2 (10:38→14:52)
[2019-02-24 12:35] VITALS: O2SAT 99
[2019-02-24 19:10] LABS: ANION GAP 11.4 MEQ/L (5-15); Potassium 4.3 mmol/L (3.5-5.1)
[2019-02-24 20:03] VITALS: BP 101/72; PULSE 82
--- NOTE | 2019-02-25 09:13 | CONS ---
CONSULT DATE: 02/24/2019 BRIEF HISTORY: This is a 53 year-old male who was seen because of history of syncope, this occurred twice. The first one occurred while he was in [facility] and was standing and apparently fainted. There was no serious injury sustained. This occurred two hours prior to admission while he was at home and was just relaxing but felt suddenly lightheaded and just tingling all over and he was trying to get to his chair but apparently passed out. Again, there was no injury sustained. He stated that this lasted for about a minute and when he regained consciousness he was cognizant of his environment. There was no bladder or bowel incontinence. There were no other witnesses around. The patient has never had any cardiac-related issues in the past specifically no history of myocardial infarction or heart failure. He states that during the past episode he did feel some funny sensation and then later passed out. On his initial evaluation he was noted to be hyponatremic and also had low potassium. He is on diuretics. CARDIAC RISK FACTORS: Negative for diabetes. Positive for hypertension. He smokes about a pack of cigarettes. He has a history or hyperlipidemia. FAMILY HISTORY: Negative for premature coronary artery disease. REVIEW OF SYSTEMS: PUNCH MACHINE HAND: There is no history of stroke or seizures. No chronic headache. He had a head injury at age 7. RESPIRATORY: No chronic cough. No hemoptysis. GI: Denies any nausea. No vomiting. No diarrhea or constipation. He has history of bleeding peptic ulcer in the past. He had colonoscopy which showed some polyp disorder. : Negative for dysuria or hematuria. No flank pains. PERIPHERAL VASCULAR: No history of deep venous thrombosis or claudication. He has a history of varicose veins. MUSCULOSKELETAL: He has some degenerative joint disorder involving the knees and left hip. SKIN: There are no active dermatological problems. HEMATOLOGY: No history of blood dyscrasia or transfusion. ENDOCRINE: No history of thyroid disorder. PSYCHIATRIC: He has history of anxiety and depression. CURRENT MEDICATIONS: Enalapril, gabapentin, Atarax, Protonix, Simvastatin, Flomax, Atenolol, Celebrex, clonazepam, Pristiq, omeprazole and recently Wellbutrin. PAST SURGICAL HISTORY: Appendectomy. Adhesiolysis. Foot surgery. Tonsillectomy. SOCIAL HISTORY: He lives by himself. He is currently on Disability. He used to farm. He has no significant alcohol intake. PHYSICAL EXAMINATION: Blood pressure 106/68, heart rate 68, respirations about 18. GENERAL: The patient is a middle aged male who is alert, oriented, mildly obese who is not in any form of distress. HEENT: Unremarkable. NECK: No significant JVD. No carotid bruit. CHEST: The breath sounds are clear. CARDIAC: Heart tones are normal. The rhythm is regular. ABDOMEN: Soft with normal bowel sounds. No bruits. EXTREMITIES: No significant edema. Good distal pulses. LAB DATA AND DIAGNOSTIC TESTS: The EKG done on 02/24/2019 showed sinus rhythm with poor R-wave progression with isolated PVC's. Laboratory data: TSH 1.7. Troponin I is normal. Cholesterol 144 with LDL of 84. International normalized ratio 1.0. Hemoglobin 13.5, PLT 229,000. Urine drug screen is negative. Serum sodium 127, potassium 3.4. Glomerular filtration rate is normal. ASSESSMENT AND PLAN: 1) Syncope possible etiologies include cardiac arrhythmia particularly bradycardia, possible neurocardiogenic syncope, orthostatic hypotension and also electrolyte imbalance. I suggest repeating electrolytes to make sure that the hyponatremia and hypokalemia has been corrected, this also increases his risk for cardiac arrhythmia. 2) Multiple cardiac risk factors currently asymptomatic. Will likely do coronary calcium score for screening and eventually maybe even a stress test. 3) Hypertension. Will get orthostatic blood pressure and perhaps the HENRY inhibitor needs to be adjusted as his blood pressure is in the low normal. 4) Hyperlipidemia. 5) History of anxiety and depression. I will follow up with you.
--- NOTE | 2019-02-25 09:23 | ECHO ---
Transthoracic echocardiographic examination and color Doppler was done on 02/24/2019. INDICATION: Syncope. IMPRESSION: 1) NO REGIONAL WALL MOTION ABNORMALITY. ESTIMATED GLOBAL LEFT VENTRICULAR EJECTION FRACTION BETWEEN 50 AND 60%. 2) LEFT ATRIAL ENLARGEMENT. The left ventricle is visualized and demonstrated adequate motion of all the segments. Estimated global left ventricular ejection fraction between 50 and 60%. The left ventricular thickness is normal. The mitral valve is seen and this opens adequately. There is no significant mitral regurgitation. Left atrium is mildly enlarged. Tissue Doppler study of the lateral mitral annulus is within normal. The aortic valve opens adequately. There is no significant gradient across the left ventricular outflow tract. The right side chambers are normal with normal right ventricular contractility.
== END 2019-02-24 21:38 | disposition home or self-care (01) ==
LOC: ED 22:04 → MED SURG 02-24 01:28
PROVIDERS: ADMIT Family Medicine; ATTEND Family Medicine
DX: R55 Syncope and collapse (principal); I10 Essential (primary) hypertension; E78.5 Hyperlipidemia, unspecified; R07.9 Chest pain, unspecified; E87.1 Hypo-osmolality and hyponatremia; E87.6 Hypokalemia; F17.200 Nicotine dependence, unspecified, uncomplicated
CPT/HCPCS: 36415; 70450; 71045; 80051; 80053; 80061; 80307; 81001; 82550; 82570; 83721; 83735; 83880; 83935; 84132; 84300; 84443; 84484; 85025; 85379; 85610; 85730; 93005; 93041; 93225; 93268; 93306; 94760; 95812; 99285; G0378; A9270-GY

== ENCOUNTER 2019-07-04 00:46 | Emergency (ER) | payer MEDICARE ==
[2019-07-04 00:53] VITALS: BP 151/98; PULSE 77; O2SAT 98
--- NOTE | 2019-07-04 00:54 | ERPHSYRPT ---
- History of Present Illness Time Seen by Provider: 07/04/19 00:54 Source: patient, family Exam Limitations: no limitations Physician History: 54 y/o white male presents for postop wound check of a left wrist carpal tunnel release surgery performed 2 days ago. pt has club feet and lost his balance twice today. each time he fell onto outstretched bilat hands. he wants wound evaluated because he thinks suture may have pulled through. Timing/Duration: today Modifying Factors: Improves With: nothing Associated Symptoms: denies symptoms Allergies/Adverse Reactions: Cephalosporins Allergy (Severe, Verified 11/15/13 16:26) Difficulty Breathing Tetanus Vaccines and Toxoid Allergy (Verified 02/23/19 22:18) Tightness of Throat Home Medications: Atenolol 50 mg [Tenormin 50 mg] 100 mg PO DAILY 11/15/13 [History] Desvenlafaxine Succinate [Pristiq] 200 mg PO DAILY 11/15/13 [History] Bupropion HCl Xl 150 mg [Wellbutrin XL 150 MG] 450 mg PO QAM 02/24/19 [ History] Celecoxib 100 mg [celeBREX 100 MG] 200 mg PO BID 02/24/19 [History] Enalapril Maleate 20 mg PO BID 02/24/19 [History] Ergocalciferol (Vitamin D2) [Vitamin D2] 50,000 units PO WEEKLY 02/24/19 [ History] Gabapentin 300 mg PO TID 02/24/19 [History] Hydroxyzine HCl 25 mg [Atarax 25 mg] 25 mg PO BID 02/24/19 [History] Minocycline [Minocycline 100MG Cap] 100 mg PO QAM 02/24/19 [History] Omeprazole 40 mg PO QAM 02/24/19 [History] Simvastatin 10 mg PO QAM 02/24/19 [History] Tamsulosin HCl 0.4 mg [Flomax 0.4 MG] 0.4 mg PO DAILY 02/24/19 [History] Hx Tetanus, Diphtheria Vaccination/Date Given: No Hx Influenza Vaccination/Date Given: No Hx Pneumococcal Vaccination/Date Given: No - Review of Systems Constitutional: No Symptoms Eyes: No Symptoms Ears, Nose, & Throat: No Symptoms Respiratory: No Symptoms Cardiac: No Symptoms Abdominal/Gastrointestinal: No Symptoms Genitourinary Symptoms: No Symptoms Musculoskeletal: No Symptoms Skin: Other (post left carpal tunnel release surgery) Neurological: No Symptoms Psychological: No Symptoms Endocrine: No Symptoms Hematologic/Lymphatic: No Symptoms Immunological/Allergic: No Symptoms All Other Systems: Reviewed and Negative - Past Medical History Pertinent Past Medical History: Yes Neurological History: No Pertinent History ENT History: No Pertinent History Cardiac History: Hypertension Respiratory History: No Pertinent History Endocrine Medical History: No Pertinent History Musculoskeletal History: Osteoarthritis GI Medical History: GERD, Irritable Bowel History: No Pertinent History Psycho-Social History: Anxiety, Depression Male Reproductive Disorders: No Pertinent History - Past Surgical History Past Surgical History: Yes Neuro Surgical History: No Pertinent History Cardiac: No Pertinent History Respiratory: No Pertinent History Gastrointestinal: Appendectomy, Cholecystectomy Genitourinary: No Pertinent History Musculoskeletal: Orthopedic Surgery Male Surgical History: No Pertinent History Other Surgical History: LEFT FOOT SURGERY IN 03 - Social History Smoking Status: Current every day smoker Exposure to second hand smoke: No Drug Use: none Patient Lives Alone: No - Nursing Vital Signs Nursing Vital Signs: Initial Vital Signs Temperature 97.8 F 07/04/19 00:46 Pulse Rate 77 07/04/19 00:46 Respiratory Rate 18 07/04/19 00:46 Blood Pressure 151/98 07/04/19 00:46 O2 Sat by Pulse Oximetry 98 07/04/19 00:46 Pain Scale Pain Intensity 5 - Physical Exam General Appearance: no apparent distress, alert, anxiety Eye Exam: PERRL/EOMI, eyes nml inspection Ears, Nose, Throat Exam: normal ENT inspection, moist mucous membranes Neck Exam: normal inspection, non-tender, supple, full range of motion Respiratory Exam: No chest tenderness Gastrointestinal/Abdomen Exam: No tenderness Rectal Exam: not done Back Exam: normal inspection, normal range of motion, No CVA tenderness, No vertebral tenderness Extremity Exam: normal range of motion Neurologic Exam: alert, oriented x 3, cooperative, 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 ) Lymphatic Exam: No adenopathy SpO2 Interpretation: normal SpO2: 98 O2 Delivery: Room Air - Course Nursing assessment & vital signs reviewed: Yes - Progress Progress: unchanged Progress Note: 07/04/19 01:02 nurses cleaned site, placed a thin layer of antibiotic ointment and placed a new dressing. Counseled pt/family regarding: diagnosis, need for follow-up - Departure Departure Disposition: Home Clinical Impression: Encounter for postoperative wound check Condition: Stable Critical Care Time: No Referrals: FAM LUI NP [Primary Care Provider] - Additional Instructions: keep bandage in place and follow your wound care/dressing instructions. call your surgeon today to obtain further instructions.
[2019-07-04] MEDS ORDERED: BACIGUENT PACKET ONE (01:00)
== END 2019-07-04 01:26 | disposition home or self-care (01) ==
LOC: ED 00:46
DX: Z48.01 Encounter for change or removal of surgical wound dressing (principal)
CPT/HCPCS: 99283; A9270-GY

== ENCOUNTER 2019-09-23 18:43 | Emergency (ER) | payer MEDICARE ==
[2019-09-23] MEDS ORDERED: Adacel Vial IM ONE ×2 (19:05→19:14)
[2019-09-23] MEDS ORDERED: BENADRYL 50 MG/ML IV ONE (19:05)
--- NOTE | 2019-09-23 19:09 | ERPHSYRPT ---
- History of Present Illness Time Seen by Provider: 09/23/19 18:55 Source: patient Exam Limitations: no limitations Patient Subjective Stated Complaint: pt reports he was working out in his yard when he became entangled in a piece of wire causing his left croc shoe to come off, pt states that he then stepped on a piece of metal post sticking up from the ground. pt reports allergy to all products containing tetanus. pt denies any other injury. Triage Nursing Assessment: pt is aox3, pupils perrl, afebrile, resps easy and non labored, radial pulses strong and equal, cap refill < 3 seconds, pt skin pink warm dry. laceration noted to the bottom of the left foot measuring approx 6 cm in length, wound is well approximated, minimal serous drainage noted at this time. Physician History: Patient cut the sole of his left foot on a metal wire post out in a field that has cows and horses pass by it. He states he had a localized reaction to a tetanus booster given to him 20 years ago and was told not to get it in the future. Timing/Duration: today, hour(s) (1) Quality: painful Severity: mild Location: feet (left foot only) Possible Causes: other (cut on metal wire) Modifying Factors: Worsens With: other (with ambulation) Associated Symptoms: denies symptoms, No blisters, No change in skin texture, No difficulty breathing, No edema, No fever, No flushing, No headache, No hives , No jaundice, No malaise, No nasal congestion, No numbness, No pallor, No paresthesia, No petechiae, No rash, No sore throat, No swelling/mass/lumps, No tingling Allergies/Adverse Reactions: Cephalosporins Allergy (Severe, Verified 09/23/19 18:56) Difficulty Breathing Tetanus Vaccines and Toxoid Allergy (Verified 09/23/19 18:56) Tightness of Throat Home Medications: Atenolol 50 mg [Tenormin 50 mg] 100 mg PO DAILY 11/15/13 [History] Desvenlafaxine Succinate [Pristiq] 200 mg PO DAILY 11/15/13 [History] Bupropion HCl Xl 150 mg [Wellbutrin XL 150 MG] 450 mg PO QA 02/24/19 [ History] Celecoxib 100 mg [celeBREX 100 MG] 200 mg PO BID 02/24/19 [History] Enalapril Maleate 20 mg PO BID 02/24/19 [History] Ergocalciferol (Vitamin D2) [Vitamin D2] 50,000 units PO WEEKLY 02/24/19 [ History] Gabapentin 300 mg PO TID 02/24/19 [History] Hydroxyzine HCl 25 mg [Atarax 25 mg] 25 mg PO BID 02/24/19 [History] Minocycline [Minocycline 100MG Cap] 100 mg PO QAM 02/24/19 [History] Omeprazole 40 mg PO QAM 02/24/19 [History] Simvastatin 10 mg PO QAM 02/24/19 [History] Tamsulosin HCl 0.4 mg [Flomax 0.4 MG] 0.4 mg PO DAILY 02/24/19 [History] Clindamycin HCl 300 mg PO TID 07/04/19 [History] Hx Tetanus, Diphtheria Vaccination/Date Given: No (allergy) Hx Influenza Vaccination/Date Given: Yes Hx Pneumococcal Vaccination/Date Given: Yes Immunizations Up to Date: Yes - Review of Systems Constitutional: No Fever, No Chills, No Fatigue Eyes: No Eye Pain, No Vision Changes Ears, Nose, & Throat: No Nose Pain, No Epistaxis, No Mouth Swelling, No Throat Pain, No Painful Swallowing Respiratory: No Cough, No Dyspnea Cardiac: No Chest Pain, No Edema, No Syncope Abdominal/Gastrointestinal: No Abdominal Pain, No Nausea, No Vomiting, No Diarrhea Genitourinary Symptoms: No Flank Pain Musculoskeletal: No Back Pain, No Neck Pain, No Fall Skin: No Rash Neurological: No Dizziness, No Focal Weakness, No Headache, No Parasthesia, No Sensory Changes Psychological: No Emotional Lability Endocrine: No Polydipsia, No Excessive Sweating Hematologic/Lymphatic: No Easy Bleeding, No Easy Bruising All Other Systems: Reviewed and Negative - Past Medical History Pertinent Past Medical History: Yes Neurological History: No Pertinent History ENT History: No Pertinent History Cardiac History: Hypertension Respiratory History: No Pertinent History Endocrine Medical History: No Pertinent History Musculoskeletal History: Osteoarthritis GI Medical History: GERD, Irritable Bowel History: No Pertinent History Psycho-Social History: Anxiety, Depression Male Reproductive Disorders: No Pertinent History - Past Surgical History Past Surgical History: Yes Neuro Surgical History: No Pertinent History Cardiac: No Pertinent History Respiratory: No Pertinent History Gastrointestinal: Appendectomy, Cholecystectomy Genitourinary: No Pertinent History Musculoskeletal: Orthopedic Surgery Male Surgical History: No Pertinent History Other Surgical History: LEFT FOOT SURGERY IN 03 - Social History Smoking Status: Current every day smoker How long have you smoked: 20 yrs Exposure to second hand smoke: No Drug Use: none Patient Lives Alone: No - Nursing Vital Signs Nursing Vital Signs: Initial Vital Signs Temperature 98 F 09/23/19 18:44 Pulse Rate 71 09/23/19 18:44 Respiratory Rate 18 09/23/19 18:44 Blood Pressure 143/100 09/23/19 18:44 O2 Sat by Pulse Oximetry 100 09/23/19 18:44 Pain Scale Pain Intensity 2 - Physical Exam General Appearance: no apparent distress, alert Eye Exam: PERRL/EOMI, eyes nml inspection Ears, Nose, Throat Exam: normal ENT inspection, pharynx normal, moist mucous membranes Neck Exam: normal inspection, non-tender, supple, full range of motion Respiratory Exam: normal breath sounds, lungs clear, No respiratory distress Cardiovascular Exam: regular rate/rhythm, normal heart sounds, normal peripheral pulses, capillary refill <2 sec Gastrointestinal/Abdomen Exam: soft, normal bowel sounds, No tenderness, No distention Back Exam: normal inspection, normal range of motion, No CVA tenderness, No vertebral tenderness Extremity Exam: normal inspection, normal range of motion Neurologic Exam: alert, oriented x 3, cooperative, 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, normal mood/affect, nml cerebellar function, sensation nml, No motor deficits Skin Exam: normal color, warm, dry, laceration (sole of left foot, superficial and jagged in certain areas in midfoot going diagonally 7 cm the top layer of skin, no dermal involvment) SpO2 Interpretation: normal SpO2: 100 O2 Delivery: Room Air Procedures - Laceration/Wound Repair Left Foot Wound Length (cm): 7 (cm) Wound's Depth, Shape: superficial, linear Wound Explored: clean Irrigated: Yes Hibiclens Prep: Yes Volume Anesthetic (ccs): 0 Wound Debrided: none Wound Repaired With: Dermabond Layer Closure?: No Sterile Dressing Applied?: Yes Ordered Tests: Active Orders 24 hr Category Date Time Status Crutches STAT Care 12/20/19 19:56 Active IV Insertion STAT Care 09/23/19 19:05 Active Medication Summary Discontinued Medications Generic Name Dose Route Start Last Admin Trade Name Sheri PRN Reason Stop Dose Admin Diphenhydramine HCl 25 mg 09/23/19 19:05 09/23/19 19:25 Benadryl 50 Mg/Ml IV 09/23/19 19:06 25 mg STAT ONE Administration Diphenhydramine HCl Confirm 09/23/19 19:14 Benadryl 50 Mg/Ml Administered 09/23/19 19:15 Dose 50 mg .ROUTE .STK-MED ONE Diphtheria/Tetanus/Acell Pertussis 0.5 ml 09/23/19 19:05 09/23/19 19:20 Adacel Vial IM 09/23/19 19:06 0.5 ml .ONCE ONE Administration Diphtheria/Tetanus/Acell Pertussis Confirm 09/23/19 19:14 Adacel Vial Administered 09/23/19 19:15 Dose 0.5 ml IM .STK-MED ONE - Progress Progress: improved Progress Note: 09/23/19 19:10 Patient did not have any airway compromise, tongue swelling, wheezing, hives, skin rash or blood pressure dropping or admission to the hospital when he received his last tetanus booster twenty years ago. He had localized swelling in the hip where he had the injection. 09/23/19 19:44 Patient having no response to the Tdap given with no wheeze, no respiratory distress, no erythema, no hives no skin rashes. 09/23/19 20:34 Patient did not have any airway, circulatory, or integument findings that are consistent with any type of allergic response after getting his tetanus booster. Counseled pt/family regarding: diagnosis, need for follow-up - Departure Departure Disposition: Home Clinical Impression: Laceration of left foot excluding toes Qualifiers: Encounter type: initial encounter Qualified Code(s): S91.312A - Laceration without foreign body, left foot, initial encounter Hypertension Qualifiers: Hypertension type: essential hypertension Qualified Code(s): I10 - Essential ( primary) hypertension Condition: Good Critical Care Time: No Referrals: FAM LUI NP [Primary Care Provider] - Follow Up with PCP/3 days Instructions: Laceration Repair With Glue (DC), Tdap Vaccine, Epinephrine Autoinjectors Additional Instructions: Use the crutches to take weightbearing off your left foot for the next 5-7 days. Do not soak your left foot in water but you may bathe with shower slippers. Use the epinephrine pen as needed per instructions for severe allergic reaction. It does not appear to have any immediate hypersensitivity to tetanus at this time. Return immediately back to the emergency department if you have any difficulty breathing, new rashes, knee swelling sensation in her mouth or tongue, any wheezing, any dizziness or feeling faint sensation or any other concerning signs or symptoms that were not present at the base of her third visit for immediate reevaluation in the emergency department. Prescriptions: EPINEPHrine [Epipen 0.3 MG] 0.3 mg IM DAILY PRN PRN #1 pack PRN Reason: Allergies
[2019-09-23] MEDS ORDERED: BENADRYL 50 MG/ML ONE (19:14)
[2019-09-23 20:14] VITALS: BP 125/77; PULSE 68
[2019-09-23 20:39] VITALS: O2SAT 100
== END 2019-09-23 20:52 | disposition home or self-care (01) ==
LOC: ED 18:43
DX: S91.312A Laceration without foreign body, left foot, initial encounter (principal); I10 Essential (primary) hypertension; W26.8XXA Contact with other sharp object(s), not elsewhere classified, initial encounter
CPT/HCPCS: 12001; 36000; 90471; 90715; 96374; 99284; J1200

== ENCOUNTER 2020-03-19 22:45 | Emergency (ER) | payer MEDICARE ==
--- NOTE | 2020-03-19 23:00 | ERPHSYRPT ---
- History of Present Illness Time Seen by Provider: 03/19/20 22:55 Source: patient Exam Limitations: no limitations Physician History: A 55-year-old male who was put on doxycycline by his primary care physician for skin infection and today was baling hay and suffered severe rivero from the sun on his forearms and particularly his hands. Timing/Duration: today Quality: burning Severity: moderate Location: hands Possible Causes: medications Allergies/Adverse Reactions: Cephalosporins Allergy (Severe, Verified 09/23/19 18:56) Difficulty Breathing Tetanus Vaccines and Toxoid Allergy (Verified 09/23/19 18:56) Tightness of Throat Home Medications: Atenolol 50 mg [Tenormin 50 mg] 100 mg PO DAILY 11/15/13 [History] Desvenlafaxine Succinate [Pristiq] 200 mg PO DAILY 11/15/13 [History] Bupropion HCl Xl 150 mg [Wellbutrin XL 150 MG] 450 mg PO QAM 02/24/19 [ History] Celecoxib 100 mg [celeBREX 100 MG] 200 mg PO BID 02/24/19 [History] Enalapril Maleate 20 mg PO BID 02/24/19 [History] Ergocalciferol (Vitamin D2) [Vitamin D2] 50,000 units PO WEEKLY 02/24/19 [ History] Gabapentin 300 mg PO TID 02/24/19 [History] Hydroxyzine HCl 25 mg [Atarax 25 mg] 25 mg PO BID 02/24/19 [History] Minocycline [Minocycline 100MG Cap] 100 mg PO QAM 02/24/19 [History] Omeprazole 40 mg PO QAM 02/24/19 [History] Simvastatin 10 mg PO QAM 02/24/19 [History] Tamsulosin HCl 0.4 mg [Flomax 0.4 MG] 0.4 mg PO DAILY 02/24/19 [History] Clindamycin HCl 300 mg PO TID 07/04/19 [History] Hx Tetanus, Diphtheria Vaccination/Date Given: No (allergy) Hx Influenza Vaccination/Date Given: Yes Hx Pneumococcal Vaccination/Date Given: Yes - Review of Systems Constitutional: No Fever, No Chills Eyes: No Symptoms Ears, Nose, & Throat: No Symptoms Respiratory: No Cough, No Dyspnea Cardiac: No Chest Pain, No Edema, No Syncope Abdominal/Gastrointestinal: No Abdominal Pain, No Nausea, No Vomiting, No Diarrhea Genitourinary Symptoms: No Dysuria Musculoskeletal: No Back Pain, No Neck Pain Skin: Other (Partial-thickness rivero), No Rash Neurological: No Dizziness, No Focal Weakness, No Sensory Changes Psychological: No Symptoms Endocrine: No Symptoms All Other Systems: Reviewed and Negative - Past Medical History Pertinent Past Medical History: Yes Neurological History: No Pertinent History ENT History: No Pertinent History Cardiac History: Hypertension Respiratory History: No Pertinent History Endocrine Medical History: No Pertinent History Musculoskeletal History: Osteoarthritis GI Medical History: GERD, Irritable Bowel History: No Pertinent History Psycho-Social History: Anxiety, Depression Male Reproductive Disorders: No Pertinent History - Past Surgical History Past Surgical History: Yes Neuro Surgical History: No Pertinent History Cardiac: No Pertinent History Respiratory: No Pertinent History Gastrointestinal: Appendectomy, Cholecystectomy Genitourinary: No Pertinent History Musculoskeletal: Orthopedic Surgery Male Surgical History: No Pertinent History Other Surgical History: LEFT FOOT SURGERY IN 03 - Social History Smoking Status: Current every day smoker How long have you smoked: 20 yrs Exposure to second hand smoke: No Drug Use: none Patient Lives Alone: No - Nursing Vital Signs Nursing Vital Signs: Initial Vital Signs Temperature 97.9 F 03/19/20 22:49 Pulse Rate 90 03/19/20 22:49 Respiratory Rate 18 03/19/20 22:49 Blood Pressure 156/100 03/19/20 22:49 O2 Sat by Pulse Oximetry 100 03/19/20 22:49 Pain Scale Pain Intensity 8 - Physical Exam General Appearance: mild distress, alert Eye Exam: PERRL/EOMI, eyes nml inspection Ears, Nose, Throat Exam: normal ENT inspection, pharynx normal, moist mucous membranes Neck Exam: normal inspection, non-tender, supple, full range of motion Respiratory Exam: normal breath sounds, lungs clear, No respiratory distress Cardiovascular Exam: regular rate/rhythm, normal heart sounds Gastrointestinal/Abdomen Exam: soft, mass, No tenderness Back Exam: normal inspection, normal range of motion, No CVA tenderness, No vertebral tenderness Extremity Exam: normal inspection, normal range of motion Neurologic Exam: alert, oriented x 3, cooperative, normal mood/affect, sensation nml, No motor deficits Skin Exam: other (Sudden rivero with vesicles both hands and forearms left greater than right) SpO2 Interpretation: normal SpO2: 100 O2 Delivery: Room Air - Course Nursing assessment & vital signs reviewed: Yes - Progress Progress: unchanged - Departure Departure Disposition: Home Clinical Impression: Drug-induced photosensitivity Condition: Stable Critical Care Time: No Referrals: FAM LUI NP [Primary Care Provider] - Instructions: Sunburn (DC) Prescriptions: Hydrocodone/APAP 5-325 Tab^^^ [Pratt 5-325 Tablet^^^] 1 tab PO Q6HPRN PRN #10 tablet MDD 6 PRN Reason: Pain
[2020-03-19] MEDS ORDERED: NORCO 5/325 MG PO ONE (23:01)
[2020-03-19] MEDS ORDERED: SILVADENE 50 GM TP ONE ×2 (23:01→23:05)
[2020-03-19] MEDS ORDERED: NORCO 5/325 MG ONE (23:05)
[2020-03-19 23:34] VITALS: BP 150/94; PULSE 88; O2SAT 98
== END 2020-03-19 23:33 | disposition home or self-care (01) ==
LOC: ED 22:45
DX: L56.0 Drug phototoxic response (principal)
CPT/HCPCS: 99283; A9270-GY

== ENCOUNTER 2022-06-04 15:22 | Day surgery (SDC) | payer MEDICARE ==
[~2022-06-04 15:22] MED LIST: Lactated Ringers 1,000 ML IV ONE
[2022-06-04] MEDS ORDERED: Sodium Chloride 0.9(Preservative Free) 10 ML IJ ONE (15:23)
[2022-06-04] MEDS ORDERED: Depo-Medrol 40 MG/ML IM ONE (15:23)
[2022-06-04] MEDS ORDERED: DIPRIVAN 200 MG/20 ML IV ONE (16:19)
[2022-06-04] MEDS ORDERED: Xylocaine-Mpf 2% 5 Ml Vial ONE (16:39)
--- NOTE | 2022-06-04 18:04 | XRAY ---
Indication: Left L4-S1 transforaminal GLENN. Intraoperative fluoroscopy provided for 1 minutes 12 seconds. 3 digital spot image submitted for interpretation demonstrates posterior needle tips projecting over the expected left L4 and L5 nerve roots. Small amount of contrast injected for needle tip placement. Correlate with intraoperative findings/report.
--- NOTE | 2022-06-05 11:59 | XRAY ---
1 minute 12 seconds of fluoroscopy was used in surgery for a left L4-S1 transforaminal GLENN.
== END 2022-06-04 16:55 | disposition home or self-care (01) ==
LOC: SDC-PAIN 15:22
PROVIDERS: ATTEND Psychiatry & Neurology Pain Medicine
DX: M54.16 Radiculopathy, lumbar region (principal); Z79.899 Other long term (current) drug therapy
CPT/HCPCS: 64483; 64484; 72100; 77003; J1030; J2704; Q9966

== ENCOUNTER 2022-06-18 15:47 | Day surgery (SDC) | payer MEDICARE ==
[2022-06-18] MEDS ORDERED: Depo-Medrol 40 MG/ML IM ONE (15:48)
[2022-06-18] MEDS ORDERED: LIDOCAINE HCL 1% 50 MG/5 ML VL PF IJ ONE (15:48)
[2022-06-18] MEDS ORDERED: BUPIVACAINE 0.5% VIAL IJ ONE (15:48)
--- NOTE | 2022-06-18 18:31 | XRAY ---
Indication: Right knee injection. Intraoperative fluoroscopy provided for 20 seconds. Single digital spot image submitted for interpretation demonstrates needle tip projecting over the right femur intercondylar notch. Small amount of contrast injected for needle tip placement. Correlate with intraoperative findings/report.
--- NOTE | 2022-06-18 18:32 | XRAY ---
Indication: Left knee injection. Intraoperative fluoroscopy provided for 10 seconds. Single digital spot image submitted for interpretation demonstrates needle tip projecting over the left femur intercondylar notch. Small amount of contrast injected for needle tip placement. Correlate with intraoperative findings/report.
--- NOTE | 2022-06-19 09:56 | XRAY ---
20 seconds of fluoroscopy was used in surgery for a right knee intra-articular injection.
--- NOTE | 2022-06-19 09:56 | XRAY ---
10 seconds of fluoroscopy was used in surgery for a left knee intra-articular injection.
== END 2022-06-18 17:35 | disposition home or self-care (01) ==
LOC: SDC-PAIN 15:47
PROVIDERS: ATTEND Psychiatry & Neurology Pain Medicine
DX: M17.0 Bilateral primary osteoarthritis of knee (principal); Z79.899 Other long term (current) drug therapy
CPT/HCPCS: 20610; 73560; 77002; J1030; J2001; Q9966

== ENCOUNTER 2022-07-23 11:08 | Day surgery (SDC) | payer MEDICARE ==
[2022-07-23] MEDS ORDERED: Sodium Chloride 0.9(Preservative Free) 10 ML IJ ONE (11:09)
[2022-07-23] MEDS ORDERED: Depo-Medrol 40 MG/ML IM ONE (11:09)
[2022-07-23] MEDS ORDERED: Marcaine Mpf 0.5% Vial 30 Ml IJ ONE (11:09)
[2022-07-23] MEDS ORDERED: DIPRIVAN 200 MG/20 ML IV ONE ×2 (13:31→13:44)
[2022-07-23] MEDS ORDERED: Lactated Ringers 1,000 ML IV ONE ×2 (13:38→14:01)
--- NOTE | 2022-07-23 16:42 | XRAY ---
Indication: Left L4-S1 transforaminal GLENN. Intraoperative fluoroscopy provided for 41 seconds. 4 digital spot image submitted for interpretation demonstrates posterior needle tips projecting over the expected left L4 and L5 nerve roots. Small amount of contrast injected for needle tip placement. Correlate with intraoperative findings/report.
--- NOTE | 2022-07-23 16:46 | XRAY ---
Indication: Left hip injection. Intraoperative fluoroscopy provided for 10 seconds. Single digital spot image obtained prone submitted for interpretation demonstrates needle tip just lateral to the left femur neck. Small amount of contrast injected for needle tip placement. Correlate with intraoperative findings/report.
--- NOTE | 2022-07-23 16:48 | XRAY ---
41 seconds fluoroscopy time in surgery for left L4-S1 transforaminal GLENN.
--- NOTE | 2022-07-23 16:49 | XRAY ---
10 seconds fluoroscopy time in surgery for intra-articular injection of the left hip.
== END 2022-07-23 14:10 | disposition home or self-care (01) ==
LOC: SDC-PAIN 11:08
PROVIDERS: ATTEND Psychiatry & Neurology Pain Medicine
DX: M54.16 Radiculopathy, lumbar region (principal); M16.12 Unilateral primary osteoarthritis, left hip; Z79.899 Other long term (current) drug therapy
CPT/HCPCS: 20610; 64483; 64484; 72100; 73501; 77002; 77003; J1030; J2704; Q9966

== ENCOUNTER 2024-03-17 10:38 | Day surgery (SDC) | payer MEDICARE ==
[2024-03-17] MEDS: Lactated Ringers 1,000 ML IV SCH (10:48)
[2024-03-17 10:59] VITALS: RESP 18
[2024-03-17] MEDS ORDERED: Pepcid 20 MG VIAL IV ONE (11:10)
[2024-03-17] MEDS: Pepcid 20 MG VIAL IV ONE ×2 (11:12→11:14)
[2024-03-17] MEDS ORDERED: DIPRIVAN 200 MG/20 ML IV ONE ×2 (12:53→13:07)
[2024-03-17] MEDS ORDERED: Versed 2 MG/2 ML Injection ONE (12:53)
[2024-03-17] MEDS ORDERED: DEXMEDETOMIDINE 80 MCG/20ML-NS IV ONE (13:05)
[2024-03-17] MEDS ORDERED: Lactated Ringers 1,000 ML IV ONE (13:15)
[2024-03-17 14:05] VITALS: BP 149/89; PULSE 82; O2SAT 100
[2024-03-17 14:07] VITALS: TEMP 97.4
--- NOTE | 2024-03-18 08:23 | OP ---
SURGERY DATE/TIME: 03/17/2024 1253 PREOPERATIVE DIAGNOSES: 1) Heartburn despite proton pump inhibitor. 2) History of colon polyp. POSTOPERATIVE DIAGNOSES: 1) Gastritis. 2) Esophagitis. 3) Hiatal hernia. 4) Colon polyps. 5) Poor prep. PROCEDURES: 1) EGD with biopsy. 2) Colonoscopy with hot snare polypectomy. SURGEON: John Greene M.D. ANESTHESIA: IV anesthesia. CONDITION: Patient condition stable. COMPLICATIONS: None. SPECIMEN: Antrum biopsy, esophagus biopsy, cecal polyp. HISTORY: The patient is a 59-year-old male that despite proton pump inhibitor had heartburn and reflux symptoms. He also has a history of colon polyps due for surveillance. He would like to proceed with upper and lower endoscopy. FINDINGS: As below. DESCRIPTION OF PROCEDURE: The patient is brought to the endoscopy suite. Routinely positioned and prepared. Timeout performed. IV anesthesia introduced by anesthesia. Video gastroscope inserted through the mouth advanced to the third portion of the duodenum. The duodenum is normal in appearance. The stomach has moderate gastritis with erythema, friability. Biopsy of the antrum was taken for Helicobacter pylori. Retroflexion is a difficult view. I do not totally see the hiatal hernia but he does have a moderate to large hiatal hernia with some gastritis in the hiatal hernia. He does have grade B esophagitis just proximal to the hiatal hernia. Biopsies were taken of that. The stomach is suctioned out. Scope is withdrawn. The external exam was normal. Digital rectal examination normal. Colonoscope is inserted and advanced to the cecum confirmed by the appendiceal orifice and ileocecal valve. The preparation was Aronchick poor preparation with semi-solid stool obscuring vision and plugging up the scope but over 75% of the mucosa was visualized. At the cecum, there is a 5 mm sessile polyp taken with a hot snare and sent for pathology. Withdrawal time was greater than six minutes. The colonoscopy is otherwise normal. Retroflexion normal. RECOMMENDATIONS: I recommend Carafate 1 gm q.i.d., to increase his Protonix b.i.d. We need to talk to him in the office follow up on the biopsy results. There is no real point in fixing the hiatal hernia unless he has concomitant bariatric surgery. I recommend colonoscope would be in probably two to three years due to poor prep.
== END 2024-03-17 14:09 | disposition home or self-care (01) ==
LOC: SDC 10:38
PROVIDERS: ATTEND Surgery
DX: Z09 Encounter for follow-up examination after completed treatment for conditions other than malignant neoplasm (principal); Z86.010 Personal history of colon polyps; R12 Heartburn; K29.70 Gastritis, unspecified, without bleeding; K20.90 Esophagitis, unspecified without bleeding; K44.9 Diaphragmatic hernia without obstruction or gangrene; D12.0 Benign neoplasm of cecum
CPT/HCPCS: 93005; J2250; J2704

== ENCOUNTER 2024-04-18 19:33 | Emergency (ER) | payer MEDICARE ==
[2024-04-18 19:43] VITALS: TEMP 98.1
--- NOTE | 2024-04-18 19:48 | ERPHSYRPT ---
- History of Present Illness Time Seen by Provider: 04/18/24 19:45 Historian: patient, family Exam Limitations: no limitations Physician History: This is a 59-year-old morbidly obese white male patient of nurse practitioner Nikki who has no prior diagnosis of coronary artery disease and presents with left anterior chest pain that he described as an ache that radiated into his left shoulder at 6 PM this evening prior to arrival. By the time he arrived to the emergency department, the pain had completely resolved. Patient has appointment to see a clay digger in July 2024. There were no new medication changes. And again, he has no complaints of chest pain now. However, in the last year he has had intermittent episodes of shortness of breath and dizziness. Patient does have a history of anxiety and depression. He has a history of hyperlipidemia, prostate issue, gastroesophageal reflux disease, hypertension and emphysema. Timing/Duration: today, resolved prior to arrival Activities at Onset: none Quality: aching Location: other (Left anterior chest) Chest Pain Radiation: arm (Left shoulder) Severity of Pain-Max: mild Severity of Pain-Current: none Modifying Factors: Improves With: nothing Associated Symptoms: shortness of breath (Chronic intermittent), dizziness (Chronic intermittent) Prior Chest Pain/Cardiac Workup: no prior cardiac workup Nitro Today/Relief: no nitro taken today Aspirin Treatment Today: 81 mg x 4, provided by ED Allergies/Adverse Reactions: Cephalosporins Allergy (Severe, Verified 04/18/24 19:53) Difficulty Breathing morphine Allergy (Verified 04/18/24 19:53) Tetanus Vaccines and Toxoid Allergy (Verified 04/18/24 19:53) Tightness of Throat horse serum Home Medications: Bupropion HCl Xl 150 mg [Wellbutrin XL 150 MG] 450 mg PO QAM 02/24/19 [History] Hydroxyzine HCl 25 mg [Atarax 25 mg] 25 mg PO BID PRN 02/24/19 [History] Simvastatin 10 mg PO DAILY 02/24/19 [History] Tamsulosin HCl 0.4 mg [Flomax 0.4 MG] 0.8 mg PO DAILY 02/24/19 [History] Cyclobenzaprine HCl [Flexeril] 10 mg PO TID PRN 03/19/20 [History] tadalafiL [Cialis] 5 mg PO DAILY 03/19/20 [History] Albuterol Sulfate [Albuterol Sulfate Hfa] 90 mcg IH DAILY PRN PRN 03/08/24 [History] Cholecalciferol (Vitamin D3) [Vitamin D] 5,000 unit PO UD 03/08/24 [History] Desvenlafaxine [Desvenlafaxine ER] 100 mg PO DAILY 03/08/24 [History] Famotidine 20 mg PO BID 03/08/24 [History] PANTOPRAZOLE 40 mg Tablet [Protonix 40MG Tablet] 40 mg PO DAILY 03/08/24 [History] clonazePAM [Clonazepam] 0.5 mg PO HS PRN PRN 03/08/24 [History] Cyanocobalamin/Folic Acid [Vitamin J72-Tzamr Acid Tablet] 1 tab PO DAILY 04/18/24 [History] Lisinopril 20 mg [Zestril 20 MG] 10 tab PO DAILY 04/18/24 [History] Potassium Chloride 10 meq PO DAILY 04/18/24 [History] Zinc Amino Acid Chelate [Zinc] 50 mg PO DAILY 04/18/24 [History] Hx Tetanus, Diphtheria Vaccination/Date Given: No (allergy) Hx Influenza Vaccination/Date Given: Yes Hx Pneumococcal Vaccination/Date Given: Yes Travel Risk - International Travel Have you traveled outside of the country in past 3 weeks: No - Emerging Infectious Disease Are you exhibiting symptoms associated with any current EIDs: No - Review of Systems Constitutional: No Symptoms Eyes: No Symptoms Ears, Nose, & Throat: No Symptoms Respiratory: No Symptoms, Dyspnea Cardiac: Chest Pain Abdominal/Gastrointestinal: No Symptoms Genitourinary Symptoms: No Symptoms Musculoskeletal: No Symptoms Skin: No Symptoms Neurological: Dizziness (None now) Psychological: Anxiety, Depression Endocrine: No Symptoms Hematologic/Lymphatic: No Symptoms Immunological/Allergic: No Symptoms All Other Systems: Reviewed and Negative - Past Medical History Pertinent Past Medical History: Yes Neurological History: No Pertinent History ENT History: No Pertinent History Cardiac History: Hypertension Respiratory History: Emphysema Endocrine Medical History: No Pertinent History Musculoskeletal History: Osteoarthritis GI Medical History: GERD, Irritable Bowel History: No Pertinent History Psycho-Social History: Anxiety, Depression Male Reproductive Disorders: No Pertinent History - Past Surgical History Past Surgical History: Yes Neuro Surgical History: No Pertinent History Cardiac: No Pertinent History Respiratory: No Pertinent History Gastrointestinal: Appendectomy, Cholecystectomy Genitourinary: No Pertinent History Musculoskeletal: Orthopedic Surgery Male Surgical History: No Pertinent History Other Surgical History: LEFT FOOT SURGERY IN . hips, left foot and ankle, vielka joint on left left leg foreign body removal, bialteral carpal tunnel release. - Social History Smoking Status: Current every day smoker How long have you smoked: 25 years Exposure to second hand smoke: No Drug Use: none Patient Lives Alone: No - Nursing Vital Signs Nursing Vital Signs: Initial Vital Signs Temperature 98.1 F 04/18/24 19:40 Pulse Rate 97 H 04/18/24 19:40 Respiratory Rate 20 04/18/24 19:40 Blood Pressure 132/87 04/18/24 19:40 O2 Sat by Pulse Oximetry 99 04/18/24 19:40 Pain Scale Pain Intensity 0 - Physical Exam General Appearance: no apparent distress, alert, anxiety, obese Eye Exam: PERRL/EOMI, eyes nml inspection Ears, Nose, Throat Exam: normal ENT inspection, moist mucous membranes Neck Exam: normal inspection, non-tender, supple, full range of motion Respiratory Exam: normal breath sounds, lungs clear, airway intact, No chest tenderness, No respiratory distress Cardiovascular Exam: regular rate/rhythm, normal heart sounds, normal peripheral pulses Gastrointestinal/Abdomen Exam: soft, normal bowel sounds, No tenderness Rectal Exam: not done Back Exam: normal inspection, normal range of motion, No CVA tenderness, No vertebral tenderness Extremity Exam: normal inspection, normal range of motion, pelvis stable Neurologic Exam: alert, oriented x 3, cooperative, fulfillment representative II-XII nml as tested, nml cerebellar function, nml station & gait, sensation nml Skin Exam: normal color, warm, dry Lymphatic Exam: No adenopathy SpO2 Interpretation: normal SpO2: 99 O2 Delivery: Room Air - Course Nursing assessment & vital signs reviewed: Yes EKG Interpreted by Me: RATE (93), Sinus Rhythm, Left Mcleod Deviation (Borderline), NORMAL INTERVALS, NORMAL QRS, NORMAL ST-T, Other (No acute ischemia. No change from the comparison twelve-lead EKG dated 03/17/2024.) Ordered Tests: Active Orders 24 hr Category Date Time Status Poultry Pinner STAT Care 04/18/24 19:48 Active EKG-ER Only STAT Care 04/18/24 19:48 Active IV Insertion STAT Care 04/18/24 19:48 Active CHEST 1 VIEW (PORTABLE) Stat Exams 04/18/24 20:48 Taken CBC W DIFF Stat Lab 04/18/24 19:45 Completed CMP Stat Lab 04/18/24 19:45 Completed D-DIMER QUANTITATIVE Stat Lab 04/18/24 19:45 Completed MAGNESIUM Stat Lab 04/18/24 19:45 Completed Manual Differential NC Stat Lab 04/18/24 19:45 Completed NT PRO BNPII Stat Lab 04/18/24 19:45 Completed Occult Blood-Fecal Screen (Diagnostic) [OB-FECAL SCREEN Lab 04/18/24 Ordered ] Stat PROTIME WITH INR Stat Lab 04/18/24 19:45 Completed TROPONIN Q4H Lab 04/18/24 19:45 Completed TROPONIN Q4H Lab 04/19/24 00:00 Ordered TROPONIN Q4H Lab 04/19/24 04:00 Ordered UA W/RFX UR CULTURE Stat Lab 04/18/24 20:25 Completed Medication Summary Discontinued Medications Generic Name Dose Route Start Last Admin Trade Name Freq PRN Reason Stop Dose Admin Aspirin 324 mg 04/18/24 19:48 04/18/24 19:57 Aspirin 81 Mg Tab.Chew PO 04/18/24 19:49 324 mg STAT ONE Administration Aspirin Confirm 04/18/24 19:56 Aspirin 81 Mg Tab.Chew Administered 04/18/24 19:57 Dose 324 mg .ROUTE .STK-MED ONE Lab/Rad Data: Laboratory Result Diagrams 04/18/24 19:45 04/18/24 19:45 Laboratory Results 04/18/24 04/18/24 04/18/24 Range/Units 20:25 19:45 19:45 WBC (4.23-9.07) x10^3/uL RBC (4.63-6.08) x10^6/uL Hgb (13.7-17.5) g/dL Hct (40.1-51.0) % MCV (79.0-92.2) fL MCH (25.7-32.2) pg MCHC (32.3-36.5) g/dL RDW (11.6-14.4) % Plt Count (163-337) x10^3/uL MPV (9.4-12.4) fL Gran % (34.0-67.9) % Immature Gran % (Auto) (0.001-0.429) % Nucleat RBC Rel Count (0.00-0.2) % Eos # (Auto) (0.04-0.54) x10^3/uL Immature Gran # (Auto) (0.001-0.031) x10^3u/L Absolute Lymphs (auto) (1.32-3.57) x10^3/uL Absolute Monos (auto) (0.30-0.82) x10^3/uL Absolute Nucleated RBC (0.00-0.012) x10^3u/L Lymphocytes % (21.8-53.1) % Monocytes % (5.3-12.2) % Eosinophils % (0.8-7.0) % Basophils % (0.2-1.2) % Absolute Granulocytes (1.78-5.38) x10^3/uL Basophils # (0.01-0.08) x10^3/uL PT 10.3 (9.4-12.5) SECONDS INR 0.94 (0.8-3.0) D-Dimer 0.45 (0.0-0.50) mg/L Sodium (135-145) mmol/L Potassium (3.5-5.1) mmol/L Chloride (98-107) mmol/L Carbon Dioxide (22-30) mmol/L Anion Gap (5-15) MEQ/L BUN (9-20) mg/dL Creatinine (0.66-1.25) mg/dL Estimated GFR ML/MIN Glucose (74-106) mg/dL Calcium (8.4-10.2) mg/dL Magnesium (1.6-2.3) mg/dL Total Bilirubin (0.2-1.3) mg/dL AST (17-59) U/L ALT (0-50) U/L Alkaline Phosphatase (38-126) U/L Troponin I < 0.012 (0.000-0.033) ng/mL NT-Pro-B Natriuret Pep (<300) pg/mL Serum Total Protein (6.3-8.2) g/dL Albumin (3.5-5.0) g/dL Urine Color Yellow (Yellow) Urine Appearance Clear (Clear) Urine pH 7.5 (4.6-8.0) Ur Specific [place] <=1.005 (1.005-1.030) Urine Protein Negative (Negative) Urine Glucose (UA) Negative (Negative) mg/dL Urine Ketones Negative (Negative) Urine Blood Negative (Negative) Urine Nitrite Negative (Negative) Urine Bilirubin Negative (Negative) Urine Urobilinogen 0.2 (0.2) mg/dL Ur Leukocyte Esterase Negative (Negative) U Hyaline Cast (Auto) NONE SEEN (0-2) /LPF Urine Microscopic RBC 0-2 (0-5) /HPF Urine Microscopic WBC 0-2 (0-5) /HPF Ur Epithelial Cells None Seen (None Seen) /HPF Urine Bacteria None Seen (None Seen) /HPF Urine Culture Reflexed NO (NO) Slides for Path Review 04/18/24 04/18/24 Range/Units 19:45 19:45 WBC 11.8 H (4.23-9.07) x10^3/uL RBC 4.63 (4.63-6.08) x10^6/uL Hgb 8.5 L (13.7-17.5) g/dL Hct 30.6 L (40.1-51.0) % MCV 66.1 L (79.0-92.2) fL MCH 18.4 L (25.7-32.2) pg MCHC 27.8 L (32.3-36.5) g/dL RDW 21.1 H (11.6-14.4) % Plt Count 334 (163-337) x10^3/uL MPV 8.9 L (9.4-12.4) fL Gran % 63.5 (34.0-67.9) % Immature Gran % (Auto) 0.4 (0.001-0.429) % Nucleat RBC Rel Count 0.0 (0.00-0.2) % Eos # (Auto) 0.46 (0.04-0.54) x10^3/uL Immature Gran # (Auto) 0.05 H (0.001-0.031) x10^3u/L Absolute Lymphs (auto) 2.59 (1.32-3.57) x10^3/uL Absolute Monos (auto) 1.11 H (0.30-0.82) x10^3/uL Absolute Nucleated RBC 0.00 (0.00-0.012) x10^3u/L Lymphocytes % 22.0 (21.8-53.1) % Monocytes % 9.4 (5.3-12.2) % Eosinophils % 3.9 (0.8-7.0) % Basophils % 0.8 (0.2-1.2) % Absolute Granulocytes 7.47 H (1.78-5.38) x10^3/uL Basophils # 0.10 H (0.01-0.08) x10^3/uL PT (9.4-12.5) SECONDS INR (0.8-3.0) D-Dimer (0.0-0.50) mg/L Sodium 137 (135-145) mmol/L Potassium 3.8 (3.5-5.1) mmol/L Chloride 98 (98-107) mmol/L Carbon Dioxide 30 (22-30) mmol/L Anion Gap 11.5 (5-15) MEQ/L BUN 5 L (9-20) mg/dL Creatinine 0.77 (0.66-1.25) mg/dL Estimated GFR 104.4 ML/MIN Glucose 102 (74-106) mg/dL Calcium 9.4 (8.4-10.2) mg/dL Magnesium 1.9 (1.6-2.3) mg/dL Total Bilirubin 0.20 (0.2-1.3) mg/dL AST 28 (17-59) U/L ALT 32 (0-50) U/L Alkaline Phosphatase 91 (38-126) U/L Troponin I (0.000-0.033) ng/mL NT-Pro-B Natriuret Pep < 20.0 (<300) pg/mL Serum Total Protein 6.7 (6.3-8.2) g/dL Albumin 4.1 (3.5-5.0) g/dL Urine Color (Yellow) Urine Appearance (Clear) Urine pH (4.6-8.0) Ur Specific [place] (1.005-1.030) Urine Protein (Negative) Urine Glucose (UA) (Negative) mg/dL Urine Ketones (Negative) Urine Blood (Negative) Urine Nitrite (Negative) Urine Bilirubin (Negative) Urine Urobilinogen (0.2) mg/dL Ur Leukocyte Esterase (Negative) U Hyaline Cast (Auto) (0-2) /LPF Urine Microscopic RBC (0-5) /HPF Urine Microscopic WBC (0-5) /HPF Ur Epithelial Cells (None Seen) /HPF Urine Bacteria (None Seen) /HPF Urine Culture Reflexed (NO) Slides for Path Review YES - Progress Progress: improved, re-examined Air Movement: good Progress Note: 04/18/24 20:13 My medical decision making and the assignment of moderate complexity to this patient's medical issue today is based on review of the patient's past medical history, review of patient medication list, review of drug allergy list, history present illness and physical findings on examination. The workup in the patient clued placement of intravenous line, provide the patient with 324 mg baby aspirin, CBC, CMP, twelve-lead EKG, troponin level, D-dimer level, BNP, magnesium level. Differential diagnosis includes but is not limited to myocardial infarction, CHF exacerbation, COPD exacerbation, pneumonia, pulmonary embolus, electrolyte abnormalities, arrhythmia, anxiety 04/18/24 21:38 I interpreted the patient's laboratory data results. The patient does have a mild leukocytosis with left shift. I do not have a source for this finding. Patient also has a hemoglobin of 8.5 with no source of acute, active bleeding. He had hemoglobin 9.5 in January 2024. We will place him on a daily Protonix pill and I will remotely send a prescription to his pharmacy. Patient will call his primary care provider tomorrow, 04/19/2024 for further evaluation and management. I did discuss this patient with Dr. Brunson, our telehospitalist. We are both in agreement that this patient's anemia can be worked up as an outpatient. Blood Culture(s) Obtained: No Antibiotics given: No Counseled pt/family regarding: lab results, diagnosis, need for follow-up, rad results Medical Desision Making - Independent Historian Additional History obtained from: Family - Diagnostic Testing Diagnostic test were ordered, analyzed, and reviewed by me: Yes Radiological Interpretation: Interpreted by me - Risk of complications Low Risk: Low risk of morbidity from additional dx testing or treatment - Departure Departure Disposition: Home Clinical Impression: Chronic anemia, Nonspecific chest pain, Leukocytosis Condition: Stable Critical Care Time: No Referrals: [facility] [Primary Care Provider] - Follow up/PCP as directed Additional Instructions: Drink plenty of fluids. Take your medication as prescribed. Call your primary care provider tomorrow, 04/19/2024, to make a follow-up appointment to be seen in the next 3 days. Have them address your mild leukocytosis, chronic anemia, chronic shortness of breath and chronic intermittent dizziness issues.
[2024-04-18] MEDS ORDERED: BABY ASPIRIN 81 MG CHEW ONE (19:56)
[2024-04-18] MEDS: BABY ASPIRIN 81 MG CHEW PO ONE (19:57)
[2024-04-18 19:59] LABS: Absolute Neutrophil Ct (ANC) 7.47 x10^3/uL (1.78-5.38); BASOPHIL % 0.8 % (0.2-1.2); Eosinophil % 3.9 % (0.8-7.0); Eosinophil (Absolute #) 0.46 x10^3/uL (0.04-0.54); Hematocrit 30.6 % (40.1-51.0); Hemoglobin 8.5 g/dL (13.7-17.5); IMMATURE GRAN # 0.05 x10^3u/L (0.001-0.031); IMMATURE GRAN % 0.4 % (0.001-0.429); Lymphocyte (Absolute #) 2.59 x10^3/uL (1.32-3.57); Mean Cell Volume 66.1 fL (79.0-92.2); Mean Corpuscular Hemoglobin 18.4 pg (25.7-32.2); Mean Corpuscular Hgb Concent. 27.8 g/dL (32.3-36.5); Mean Platelet Volume 8.9 fL (9.4-12.4); Monocyte (Absolute #) 1.11 x10^3/uL (0.30-0.82); Monocytes % 9.4 % (5.3-12.2); Neutrophil % 63.5 % (34.0-67.9); Platelet Count 334 x10^3/uL (163-337); Red Blood Count 4.63 x10^6/uL (4.63-6.08); Red Cell Distribution Width 21.1 % (11.6-14.4); White Blood Count 11.8 x10^3/uL (4.23-9.07)
[2024-04-18 20:23] LABS: ALBUMIN 4.1 g/dL (3.5-5.0); ALKALINE PHOSPHATASE 91 U/L (38-126); ANION GAP 11.5 MEQ/L (5-15); BLOOD UREA NITROGEN 5 mg/dL (9-20); CHLORIDE 98 mmol/L (98-107); Calcium 9.4 mg/dL (8.4-10.2); Carbon Dioxide 30 mmol/L (22-30); Creatinine 1 0.77 mg/dL (0.66-1.25); EST GLOMERULAR FILTRATION RATE 104.4 ML/MIN; Glucose 102 mg/dL (74-106); MAGNESIUM 1.9 mg/dL (1.6-2.3); NT PRO BNPII < 20.0 pg/mL (<300); Potassium 3.8 mmol/L (3.5-5.1); SGOT/AST 28 U/L (17-59); SGPT/ALT 32 U/L (0-50); SODIUM 137 mmol/L (135-145); Total Protein 6.7 g/dL (6.3-8.2)
[2024-04-18 20:39] LABS: Slide Review 1 YES
[2024-04-18 20:43] LABS: D-DIMER QUANTITATIVE 0.45 mg/L (0.0-0.50); INR 0.94 (0.8-3.0); PROTIME 10.3 SECONDS (9.4-12.5)
[2024-04-18 21:00] LABS: Appearance Clear (Clear); Bacteria None Seen /HPF (None Seen); Bilirubin Negative (Negative); Blood Negative (Negative); Epithelial Cells None Seen /HPF (None Seen); Glucose, Urine Negative (Negative); Hyaline Casts NONE SEEN /LPF (0-2); Ketones Negative (Negative); Leukocyte Esterase Negative (Negative); Nitrite Negative (Negative); Ph 7.5 (4.6-8.0); Protein,Urine Dip Negative (Negative); RBC 0-2 /HPF (0-5); Specific Gravity <=1.005 (1.005-1.030); Urobilinogen 0.2 mg/dL (0.2); WBC 0-2 /HPF (0-5)
[2024-04-18 21:01] LABS: ADD URINE CULTURE? NO (NO)
[2024-04-18 21:37] VITALS: O2SAT 99
[2024-04-18 22:17] VITALS: BP 130/80; PULSE 96; RESP 22
--- NOTE | 2024-04-19 08:39 | XRAY ---
Dictation: Short of breath. Comparison: February 23, 2019 Portable apical lordotic chest less inflated and remains clear again with incidental tiny bilateral calcified granulomas. Heart not enlarged again with bilateral hilar calcified nodes. Bony thorax intact. Impression: Continued nonacute chest. Again evidence for old granulomatous disease.
== END 2024-04-18 22:17 | disposition home or self-care (01) ==
LOC: ED 19:33
DX: D64.9 Anemia, unspecified (principal); R07.9 Chest pain, unspecified; D72.829 Elevated white blood cell count, unspecified; E78.5 Hyperlipidemia, unspecified; I10 Essential (primary) hypertension; Z79.899 Other long term (current) drug therapy; Z72.0 Tobacco use
CPT/HCPCS: 36000; 36415; 71045; 80053; 81001; 83735; 83880; 84484; 85025; 85379; 85610; 93005; 93041; 99284; A9270-GY